=== PATIENT | female | born 1965 | race Hispanic/Latino ===

== ENCOUNTER 2016-12-24 14:14 | Inpatient (IN) | payer MEDICAID ==
[~2016-12-24] VITALS: Ht 170.2 cm; Wt 63.7 kg
--- NOTE | 2016-12-24 15:37 | Occupational Therapy Eval ---
OT Evaluation-General/PLF Medical Diagnosis Admission Date Dec 24, 2016 at 14:45 Medical Diagnosis: gangrene L foot, s/p L BKA Onset Date: Dec 08, 2016 Therapy Diagnosis Therapy Diagnosis: weakness, decr self care, decr activity tolerance, decr funct mobility Height/Weight Height (Feet): 5 Height (Inches): 7.00 Weight (Pounds): 148 Weight (Ounces): 0.2 Precautions Precautions/Isolations: Standard Precautions Weight Bear Status Weight Bearing Restriction: Weight Bearing/Tolerated Location Restriction: L LE Referral Physician: Prudencio Referral Reason: Evaluation/Treatment Medical History Pertinent Medical History: DM, HTN, Neuropathy (hands) Additional Medical History Pt reported trigger finger on both hands Current History Osteomyelitis L foot, sepsis, chronic airway obstruction, anxiety. Pt also has sacral sores Reviewed History: Yes Social History Home: Single Level Current Living Status: Other Family Pt reported she and her will be living with her son, his girlfriend and 4 children ADL-Prior Level of Function ADL PLOF Comments Pt reported that she was independent with all her basic self care needs. 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 She still drives DME/Equipment: Grab Bars, Shower, Tall Toilet DME/Equipment Comments Pt reported landlord was going to install grab bars, hand held shower Occupation: [employer], grocery store Drive Self: Yes OT Current Status Subjective Pt seen in bed, agreeable to OT. Pain reported 6/10 in her L leg, not described. Appearance Alert, cooperative Mental Status/Objective Patient Orientation: Person, Place, Time, Situation Attachments: Central Line, Romero Catheter, Other-See Comments (dressing L residual limb) Current Upper Extremity ROM Grossly WFl bilat. Possible old rotator cuff injury L shoulder. Arthritic changes in hands Upper Extremity Strength Grossly 4/5 bilat ADL-Treatment ADL-Current Pt hadn't eaten so she ordered her lunch. Will defer ADLs until tomorrow. She was very fatigued from transportation here and from activities in the acute care hospital Functional [place] Measure 0=Not Assessed/NA 4=Minimal Assistance 1=Total Assistance 5=Supervision or Setup 2=Maximal Assistance 6=Modified [place] 3=Moderate Assistance 7=Complete IndependenceIRFPAI Quality Coding Scale 6 Independent with activity with or without an assistive device 5 Patient requires set up or clean up by helper. Patient completes activity by themselves 4 Supervision or touching assist (CGA). [place] provide cues , steadying assist 3 The helper provides less than half the effort to complete the activity 2 The helper provides more than half the effort to complete the activity 1 Dependent. The helper does all the effort to complete an activity 7 Patient refused to complete or attempt activity 9 The patient did not perform the activity before the current illness or injury 88 Not attempted due to Medical conditions or safety concerns Education OT Patient Education: Purpose of tx/functional activities, Reviewed precautions , Rehab process Teaching Recipient: Patient Teaching Methods: Discussion Response to Teaching: Verbalize Understanding OT Short Term Goals Short Term Goals Time Frame: Dec 31, 2016 Bathing(FIM): 5 Upper Body Dressing(FIM): 5 Lower Body Dressing(FIM): 5 Toileting(FIM): 5 Toilet/Commode Transfer(FIM): 5 Additional Short Term Goals: 2-Verbalize Understanding, 3-ImproveStrength/Anatoly 1=Demonstrate adherence to instructed precautions during ADL tasks. 2=Patient will verbalize/demonstrate understanding of assistive devices/ modifications for ADL. 3=Patient will improve strength/tolerance for activity to enable patient to perform ADL's. OT Mcfp Goals Developmental Services Worker Goals Time Frame: Jan 14, 2017 Eating (FIM): 6 Eating (QC): 6 Groomin Oral Hygiene (QC): 6 Bathing(FIM): 6 Shower/Bathe Self (QC): 6 Upper Body Dressing(FIM): 6 Upper Body Dressing (QC): 6 Lower Body Dressing(FIM): 6 Lower Body Dressing (QC): 6 On/Off Footwear (QC): 6 Toileting(FIM): 6 Toileting Hygiene (QC): 6 Toilet/Commode Transfer(FIM): 6 Toilet/Commode Transfer (QC): 6 Shower Transfer(FIM): 6 Increase bilat UE strength to 5/5 as needed for functional mobility and ADLs Additional Goals: 2-Verbalize Understanding, 3-ImproveStrength/Anatoly 1=Demonstrate adherence to instructed precautions during ADL tasks. 2=Patient will verbalize/demonstrate understanding of assistive devices/ modifications for ADL. 3=Patient will improve strength/tolerance for activity to enable patient to perform ADL's. OT Education/Plan Problem List/Assessment Assessment: Decreased Activ Tolerance, Decreased UE Strength, Dependent Transfers, Impaired Coordination, Impaired Funct Balance, Impaired Self-Care Skills Pt would benefit from skilled OT to increase her independence in basic self care to allow her to return home safely to live with and family after L BKA. Discharge Recommendations Plan/Recommendations: Continue POC Treatment Plan/Plan of Care Treatment,Training & Education: Yes Patient would benefit from OT for education, treatment and training to promote independence in ADL's, mobility, safety and/or upper extremity function for ADL' s. Plan of Care: ADL Retraining, Functional Mobility, Group Exercise/Act as Ind ( education, exercise, activity tolerance, socialization, funct activities), UE Funct Exercise/Act, UE Neuromus Re-Ed/Coord Treatment Duration: Jan 14, 2017 # of days/week 5-6 Visits Per Week: 10-11 Minutes/Day (M-F): 75-90 Minutes/Day (Sat/Mat[place]or[place]): PRN Agreement: Yes Rehab Potential: Good Time/GCodes Start Time: 15:00 Stop Time: 15:20 Total Time Billed (hr/min): 20 Billed Treatment Time visit, 20 minutes evaluation moderate intensity MAURA SARKAR OT Dec 24, 2016 15:37
--- NOTE | 2016-12-24 15:38 | ST Cognitive Linguistic Eval ---
Speech Evaluation-General Medical Diagnosis Left Lower Extremity (below knee) Amputation Onset Date: Dec 24, 2016 Therapy Diagnosis Therapy Diagnosis: Cognitive Linguistic Function WNL Referral Referring Physician: Dr. Flannery Reason for Referral: Evaluation/Treatment Speech, Language, and Cognitive Evaluation Medical History Pertinent Medical History: DM Speech PLF-Current Status Prior Level of Function The patient denied cognitive, speech, or language deficits prior to or throughout her hospitalization. Subjective The patient was recently admitted to [facility] following a left below knee amputation. The patient greeted the clinician appropriately and agreed to participate in the cognitive evaluation on this date. Language Eval: Auditory Comprehends Simple Yes/No Ques: Functional Indent/Objects Multiple [place]: Functional Ident/Pics in Multiple [place]: Functional Follows 1-Step Commands: Functional Follows Complex Directions: Functional Follows General Conversations: Functional Language Eval: Verbal Language Completes Spontaneous Greeting: Functional Produces Auto, Serial Info: Functional Imitates Simple Words/Phrases: Functional Word Finding: Functional Requests Basic Needs: Functional States Basic Personal Info: Functional Expresses Complex Ideas: Functional Cognitive Patient Orientation The patient was oriented to self, location, city, date, day of week, month, and year. Objective Cognitive Domain Attention: WNL Memory: WNL Problem Solving: Functional Objective Impression The patient demonstrated cognitive linguistic skills grossly within normal limits for completion of ADL's in the least restrictive setting. Communication/Social Cognition Comprehension: 6 Expression: 6 Social Interaction: 6 Problem Solvin Memory: 5 Speech Patient Assess Expression of Ideas/Wants: Expression (4) Understanding [place] Content: Understands (4) Brief Interview-Mental Status: Yes Repetition of Three Words: Three (3) Temporal Orientation: Year: Correct (3) Temporal Orientation: Month: Accurate within 5 days(2) Temporal Orientation: Day: Correct (1) Recall : Wear to say "Sock": Yes, no cue required (2) Recall : Color: Yes, no cue required (2) Recall : Bed: Yes, no cue required (2) Speech-Plan Treatment Plan Speech Therapy Treatment Plan: Discontinue ST Evaluation, only. Rehab Potential: Good Safety Risks/Education Teaching Recipient: Patient Teaching Methods: Discussion Response to Teaching: Verbalize Understanding Education Topics Provided: Plan of Care Time Speech Therapy Time In: 14:20 Speech Therapy Time Out: 14:35 Total Billed Time: 15 Billed Treatment Time 1, YANET MURRY Dec 24, 2016 15:38
[2016-12-24 16:03] VITALS: BP 145/89
--- NOTE | 2016-12-24 16:07 | Physical Therapy Evaluation ---
PT Evaluation-General Medical Diagnosis Admission Date Dec 24, 2016 at 14:45 Medical Diagnosis: gangrene L foot, s/p L BKA Onset Date: Dec 08, 2016 Therapy Diagnosis Therapy Diagnosis: Impaired mobility, strength, endurance Height/Weight Height (Feet): 5 Height (Inches): 7.00 Weight (Pounds): 148 Weight (Ounces): 0.2 Precautions Precautions/Isolations: Standard Precautions Referral Physician: Prudencio Reason for Referral: Evaluation/Treatment Medical History Pertinent Medical History: DM, HTN, Neuropathy (hands) Additional Medical History anxiety, cholecystectomy, Current History left below the knee amputation, gangrene on heel Reviewed History: Yes Social History Home: Single Level Current Living Status: Other Family Patient states she has many steps to enter her home but is going to have the entrance modified with a ramp and railings. Prior/Core FIM Prior Level of Function Functional [place] Measure 0=Not Assessed/NA 4=Minimal Assistance 1=Total Assistance 5=Supervision or Setup 2=Maximal Assistance 6=Modified [place] 3=Moderate Assistance 7=Complete [place] Bed Mobility: 7 Transfers (B,C,W/C) (FIM): 7 Gait: 7 PT Evaluation-Current Subjective Patient in bed pre tx, agrees to PT, she states she has pain of 8/10 in left residual limb, nurse notified, she also states she has been having some phantom pain and phantom sensation. Pt/Family Goals to get ready for a prosthetic leg Objective Patient Orientation: Normal For Age ROM/Strength ROM Lower Extremities WNL, patient has full extension of left knee. Right ankle is able to achieve neutral dorsiflexion but barely. She also has fallen arch on right foot. Strenght Lower Extremities Left leg not tested due to pain. Right lower extremity hip flexion 4-/5, knee extension 4/5, knee flexion 4-/5, dorsiflexion 3+/5 Integumentary/Posture Integumentary Patient has impaired skin integrity on her bottom. Her stump is wrapped. Bladder Incontinence: Romero Cath Neuromuscular (Tone, Coordination, Reflexes) WNL Sensory Vision: Functional Hearing: Functional Sensation Right Lower Extremit: Impaired Sensation Left Lower Extremity: Intact Sensation Lower Extremities Patient has no light touch sensation from the ankle down on the right leg, she also has significant discoloration in her foot. Transfers Functional [place] Measure 0=Not Assessed/NA 4=Minimal Assistance 1=Total Assistance 5=Supervision or Setup 2=Maximal Assistance 6=Modified [place] 3=Moderate Assistance 7=Complete IndependenceIRFPAI Quality Coding Scale 6 Independent with activity with or without an assistive device 5 Patient requires set up or clean up by helper. Patient completes activity by themselves 4 Supervision or touching assist (CGA). [place] provide cues , steadying assist 3 The helper provides less than half the effort to complete the activity 2 The helper provides more than half the effort to complete the activity 1 Dependent. The helper does all the effort to complete an activity 7 Patient refused to complete or attempt activity 9 The patient did not perform the activity before the current illness or injury 88 Not attempted due to Medical conditions or safety concerns Transfers (B, C, W/C) (FIM): 4 Scootin Rollin Roll Left to Right (QC): 4 Supine to/from Sit: 5 Sit to/from Stand: 4 bed t/f WC(FIM only if WC use): 4 Sit to Lying (QC): 4 Lying to Sitting/Side of Bed(Q: 4 Sit to Stand (QC): 3 Chair/Tdi-bp-Gojxf Xfer(QC): 3 Car Transfer (QC): 88 Patient performs bed mobility with SBA and needs min assist for sit to stand and stand pivot transfers. Cues for safety and hand placement. Gait Does the Patient Walk?: Yes Mode of Locomotion: Walk Anticipated Mode of Locomotion: Walk Gait (FIM): 1 Walk 10 feet (QC): 88 Walk 50 ft with 2 Turns(QC): 88 Walk 150 ft (QC): 88 Walking 10ft/uneven surface-QC: 88 Distance: 5' Gait Level of Assist: 4 Gait Persons Needed: 1 Gait Assistive Device: FWW Comments/Gait Description Patient hops on right leg with min assist for balance, keeps left stump flexed forward in the air. Wheelchair Training Does the Pt Use a Wheelchair?: Yes Wheelchair (FIM): 5 Distance: 150'x2 Wheelchair Level of Assist: 5 Wheel 50 ft with 2 turns (QC): 5 Wheel 150 ft (QC): 5 Type of Wheelchair: Manual Stairs If not tested on admit;explain Patient not safe to attempt even one step at this time. She can barely hop forward on her right leg, she will not be able to hop high enough to get a few inches off the ground required to get onto a step. Balance Sitting Static: Normal Sitting Dynamic: Normal Standing Static: Fair Standing Dynamic: Fair Picking up an Object (QC): 88 Assessment/Needs Patient has impaired functional mobility, strength, endurance post left BKA. She will need a stump wool tamper. Rehab Potential: Fair PT Short Term Goals Short Term Goals Time Frame: Dec 31, 2016 Transfers (B,C,W/C) (FIM): 4 (CGA) Gait (FIM): 2 Gait Distance Comment: 50' Gait Level of Assist: 4 (CGA) Gait Assistive Device: FWW PT Pct Goals Pct Goals PT Pct Goals Time Frame: Jan 14, 2017 Transfers (B,C,W/C) (FIM): 5 Sit to Lying (QC): 6 Lying-Sitting on Side/Bed(QC): 6 Sit to Stand (QC): 4 Rollin Roll Left to Right (QC): 6 Chair/Ahw-eq-Vkwfi Xfer(QC): 4 Car Transfer (QC): 4 Does the Patient Walk: Yes Gait (FIM): 5 Distance: 150' Walk 10 feet (QC): 4 Walk 10ft-Uneven Surface(QC): 4 Walk 50ft with 2 Turns (QC): 4 Walk 150 ft (QC): 4 Gait Level of Assist: 5 Gait Assistive Device: FWW Stairs (FIM): 2 # of Steps: 4 1 Step (curb) (QC): 4 4 Steps (QC): 4 12 Steps (QC): 88 Stairs Level Of Assist: 4 Picking up an Object (QC): 88 PT Plan Problem List Problem List: Activity Tolerance, Functional Strength, Safety, Balance, Gait, Transfer, Bed Mobility, ROM Treatment/Plan Treatment Plan: Continue Plan of Care Treatment Plan: Bed Mobility, Education, Functional Activity Anatoly, Functional Strength, Group Therapy, Gait, Safety, Therapeutic Exercise, Transfers Treatment Duration: Jan 14, 2017 # of days/week 5-6 Visits Per Week: 10-11 Minutes/Day (M-F): 60-90 Minutes/Day (Sat/[place]): 15-30 Pt/Family Agrees w/Plan: Yes Safety Risks/Education Patient Education: Gait Training, Transfer Techniques, Correct Positioning, W/ C Management, Disease Process, Safety Issues Teaching Recipient: Patient Teaching Methods: Demonstration, Discussion Response to Teaching: Reinforcement Needed Discharge Recommendations Plan Patient will perform bed mobility and transfer training, balance and endurance training, functional strengthening, stair training, gait training, ROM exercises , and education, to improve functional mobility and independence at home and get her ready for a prosthetic leg. Therapy D/C Recommendations: Home w/ Family Support Time/GCodes Time In: 1530 Time Out: 1600 Total Billed Treatment Time: 30 Total Billed Treatment 1 visit EVM 15 min FA 15 min DESIRE SORIA PT Dec 24, 2016 16:07
[2016-12-24] MEDS ORDERED: inSUlin ASPART (NovoLOG) 1 UNIT/0.01 ML (CHARGE PER UNIT) SC SCH (16:15)
[2016-12-24] MEDS ORDERED: PIPERACILLIN/TAZOBACTAM 4.5 GM/NS 100 ML IV NR ×2 (16:48)
[2016-12-24] MEDS ORDERED: ANIDULAFUNGIN INJECTION 100 MG in NS (IVPB) 100 ML IV NR (16:53)
[2016-12-24] MEDS ORDERED: PROMETHAZINE 25 MG (PHENERGAN) TAB PO PRN (17:30)
[2016-12-24] MEDS: metFORMIN XR 500 MG (GLUCOPHAGE XR) TAB PO SCH (17:47)
[2016-12-24] MEDS: LACTOBACILLUS Acidoph/Bulgar (LACTINEX/FLORANEX) TAB PO SCH (17:47)
[2016-12-24] MEDS: HYDROcodone/APAP 10 MG/325 MG (LORTAB) TAB PO PRN (17:49)
[2016-12-24 18:05] VITALS: BP 160/80
[2016-12-24] MEDS: GABAPENTIN 100 MG (NEURONTIN) CAP PO SCH (20:37)
[2016-12-24] MEDS: CYCLOBENZAPRINE 10 MG (FLEXERIL) TAB PO PRN (20:39)
[2016-12-24] MEDS: inSUlin ASPART (NovoLOG) 1 UNIT/0.01 ML (CHARGE PER UNIT) SC SCH (20:39)
[2016-12-24] MEDS: inSUlin DETERMIR 1 UNIT/0.01 ML (LEVEMIR) CHARGE PER UNIT SQ SCH (20:44)
[2016-12-24] MEDS: PIPERACILLIN/TAZOBACTAM 4.5 GM/NS 100 ML IVPB IV SCH ×2 (23:21)
[2016-12-25] MEDS: HYDROcodone/APAP 10 MG/325 MG (LORTAB) TAB PO PRN (02:49)
[2016-12-25 06:00] VITALS: BP 149/75
[2016-12-25] MEDS: inSUlin ASPART (NovoLOG) 1 UNIT/0.01 ML (CHARGE PER UNIT) SC SCH ×4 (06:00→20:35)
[2016-12-25 06:08] LABS: BASOPHILS % (AUTO) 0 % (0-10); EOSINOPHILS # (AUTO) 0.2 10^3/uL (0.0-0.3); EOSINOPHILS % (AUTO) 2 % (0-10); LYMPHOCYTES # (AUTO) 1.6 X 10^3 (1.0-4.0); LYMPHOCYTES % (AUTO) 23 % (12-44); MEAN CORPUSCULAR HEMOGLOBIN 30 PG (25-34); MEAN CORPUSCULAR HGB CONC 34 G/DL (32-36); MEAN CORPUSCULAR VOLUME 89 FL (80-99); MEAN PLATELET VOLUME 8.4 FL (7.4-10.4); MONOCYTES # (AUTO) 0.7 X 10^3 (0.0-1.0); MONOCYTES % (AUTO) 11 % (0-12); NEUTROPHILS # (AUTO) 4.4 X 10^3 (1.8-7.8); NEUTROPHILS % (AUTO) 64 % (42-75); PLATELET COUNT 623 10^3/uL (130-400); RED BLOOD COUNT 3.38 10^6/uL (4.35-5.85); RED CELL DISTRIBUTION WIDTH 14.2 % (10.0-14.5); WHITE BLOOD COUNT 6.9 10^3/uL (4.3-11.0)
[2016-12-25] MEDS: PIPERACILLIN/TAZOBACTAM 4.5 GM/NS 100 ML IVPB IV SCH ×6 (06:29→23:20)
[2016-12-25] MEDS: metFORMIN XR 500 MG (GLUCOPHAGE XR) TAB PO SCH ×2 (06:29→17:46)
[2016-12-25] MEDS: LACTOBACILLUS Acidoph/Bulgar (LACTINEX/FLORANEX) TAB PO SCH ×3 (06:29→16:04)
[2016-12-25 06:58] LABS: ALANINE AMINOTRANSFERASE 16 U/L (0-55); ALBUMIN 2.4 G/DL (3.2-4.5); ANION GAP 11 MMOL/L (5-14); ASPARTATE AMINO TRANSFERASE 18 U/L (5-34); BILIRUBIN,TOTAL 0.2 MG/DL (0.1-1.0); BLOOD UREA NITROGEN 7 MG/DL (7-18); BUN/CREATININE RATIO 10; CALCIUM 8.5 MG/DL (8.5-10.1); CARBON DIOXIDE 23 MMOL/L (21-32); CHLORIDE 104 MMOL/L (98-107); CREATININE SERUM 0.72 MG/DL (0.60-1.30); GFR ESTIMATED > 60; GLUCOSE 88 MG/DL (70-105); POTASSIUM 3.2 MMOL/L (3.6-5.0); SODIUM 138 MMOL/L (135-145); TOTAL PROTEIN 6.9 G/DL (6.4-8.2)
[2016-12-25] MEDS ORDERED: KCL 20 MEQ TAB (K-DUR) PO ONE (08:30)
--- NOTE | 2016-12-25 08:34 | Consultation ---
History of Present Illness History of Present Illness Patient Consulted On(geri/time) 12/25/16 08:29 Date of Admission History of Present Illness patient was admitted to [facility] on and was found to have a principal diagnosis of gangrene of the left foot. Patient had a three-week history of left heel wound with foul-smelling drainage. In the emergency room patient was febrile and tachycardic. Patient did have below the knee mutation of the left extremity. Patient has a history of hypertension. Bacterial infection. Sepsis. Osteomyelitis of left foot. COPD. Diabetes mellitus type II. Diabetic neuropathy. Surgeries gallbladder, , amputation of middle left toe Allergies and Home Medications Allergies Coded Allergies: No Known Drug Allergies (Unverified , 12/24/16) Past Yliexrk-Oumkms-Gpccay Hx Patient Social History Alcohol Use: Occasionally Uses Recreational Drug Use: No Drug of Choice: THC-6 months ago Smoking Status: Former Smoker Type Used: Cigarettes Recent Foreign Travel: No Contact w/Someone Who Travel: No Recent Infectious Disease Expo: No Recent Hopitalizations: Yes Physical Abuse Screen: No Sexual Abuse: No Immunizations Up To Date Date of Influenza Vaccine: Sep 10, 2016 Seasonal Allergies Seasonal Allergies: Yes Respiratory Respiratory Disorders: COPD Reproductive System : No Sexually Transmitted Disease: No HIV/AIDS: No Female Reproductive Disorders: Denies Musculoskeletal Musculoskeletal Disorders: Amputee HEENT Loss of Vision: Denies Hearing Impairment: Denies Psychosocial Behavioral Health Disorders: Anxiety, Depression Integumentary Skin/Integumentary Disorders: Recent Skin Changes Blood Transfusions Adverse Reaction to a Blood Tr: No Family Medical History Family Medial History: Alcoholism G8 BROTHER Diabetes mellitus 19 FATHER 19 MOTHER G8 BROTHER G8 SISTER Review of Systems-General Constitutional: no symptoms reported EENTM: no symptoms reported Respiratory: other (COPD) Cardiovascular: no symptoms reported Gastrointestinal: no symptoms reported Genitourinary: no symptoms reported Physical Exam-General Problems Physical Exam Vital Signs Vital Sign - Last 12Hours 12/24/16 12/24/16 16:03 19:54 Temp 98.2 Pulse 92 Resp 16 B/P 145/89 Pulse Ox 98 O2 Delivery Room Air Capillary Refill : General Appearance: WD/WN no apparent distress Eyes: Bilateral Eye Normal Inspection HEENT: normal ENT inspection Neck: non-tender full range of motion supple Respiratory: chest non-tender lungs clear normal breath sounds no respiratory distress no accessory muscle use Cardiovascular: regular rate, rhythm no murmur Gastrointestinal: non tender soft Assessment/Plan Assessment/Plan Admission Diagnosis/Plan left below the knee amputation. Diabetes. Hypertension. COPD. Former smoker. Sepsis. Patient on IV antibiotics Clinical Quality Measures DVT/VTE Risk/Contraindication: Risk Factor Score Per Nursin RFS Level Per Nursing on Admit: 4+=Very High RAYMOND SHELLEY DO Dec 25, 2016 08:34
[2016-12-25] MEDS: GABAPENTIN 100 MG (NEURONTIN) CAP PO SCH ×2 (08:35→20:34)
[2016-12-25] MEDS: lisINopril 10 MG (PRINIVIL) TAB PO SCH (08:35)
[2016-12-25] MEDS: amLODIPine 5 MG (NORVASC) TAB PO SCH (08:35)
--- NOTE | 2016-12-25 09:53 | HISTORY AND PHYSICAL ---
DATE OF ADMISSION: 12/24/2016 CHIEF COMPLAINT: Difficulty with walking. HISTORY OF PRESENT ILLNESS: The patient is a 51-year-old female who lives with her in [place], [place], who is on [place] Medicaid, who came to visit her son to live with them in [place], [place]. She subsequently became ill, developed gangrene of the left foot. 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 The patient was seen by ID and treated by hospitalist as well. The patient is on antibiotics. Her insulin was adjusted for control of her diabetes mellitus. She has diabetic peripheral neuropathy but denies numbness in her right foot or pain or skin breakdown in her right leg. She is referred to Inpatient Rehabilitation Unit for a comprehensive program of inpatient amputee rehabilitation. Currently, she requires assistance for ADLs mobility skills. She is utilizing Lortab generic for back pain. She reports having been independent prior to this and has worked in the past as a KEYBOARDING CLERK. She also has worked in [employer]. Currently unemployed. The patient is currently mod assist for bathing. Set up for upper body dressing, mod assist for lower body dressing and toileting. She is min assist for transfers, min assist to hop short distance with a front wheel walker and she is standby assist for wheelchair mobility. PAST MEDICAL HISTORY: 1. Hypertension. 2. COPD. 3. Type 2 diabetes mellitus. PAST SURGICAL HISTORY: As per above. ALLERGIES: No known medication allergies. FAMILY HISTORY: Noncontributory. SOCIAL HISTORY: Essentially as per above. REVIEW OF SYSTEMS: Ten-point review of systems significant for residual limb pain, intermittent nausea; takes Phenergan for that. MEDICATIONS: 1. Amlodipine 5 mg p.o. daily. 2. Lisinopril 10 mg p.o. daily. 3. Gabapentin 100 mg p.o. b.i.d. 4. Phenergan 25 mg p.o. q.4 hours p.r.n. for nausea. 5. Metformin 1000 mg p.o. b.i.d. extended release. 6. Sliding scale insulin regimen A. 7. Lactinex 1 tablet p.o. before meals. 8. Lortab 10 mg 1 p.o. q.4 hours p.r.n. moderate pain. 9. Xanax 1 mg p.o. q.8 hours p.r.n. anxiety. 10. Flexeril 5 mg p.o. t.i.d. p.r.n. muscle spasm. 11. She states that she was on Lantus insulin 15 units at bedtime and NovoLog with meals. 12. Mycamine 100 mg IV for one more day, antifungal agents. 13. Zosyn 3.375 grams q.6 hours for 30 days. PHYSICAL EXAMINATION: Physical examination is significant for a pleasant female, lying in bed in no acute distress. VITAL SIGNS: Pulse 92, respirations 16, blood pressure 145/89, O2 sat 98% on room air. She is afebrile. HEENT: Vision, speech, hearing, grossly intact. No oral lesion is noted. NECK: Supple without mass. HEART: Rhythm. LUNGS: Clear. ABDOMEN: Soft, nontender. Bowel sounds present. EXTREMITIES: Left BKA, TROY wrapped with mild tenderness to touch. There is no calf tenderness or edema in the right leg. MUSCULOSKELETAL: Strength upper limbs, grossly 4/5, functional active range of motion both upper limbs. There is some arthritic changes present in both hands. Has functional district manager major accounts sales strength. Sensation in right ankle is decreased to touch. The patient has full extension of the left knee. She has pes planus of the right foot. Right lower limb hip flexion 4-/5, knee extension, 4/5, knee flexion 4-/5, dorsiflexion 3+/5. NEUROLOGIC: Sensation as per above, strength as per above. Cognition grossly intact. She has been assessed by speech therapy at this time and speech therapy has signed off. : Indwelling Romero catheter to dependent drainage. IMPRESSION: 1. Ambulatory dysfunction secondary to osteomyelitis of the left foot, status post last BKA. 2. Sepsis due to group B streptococcus on antibiotics as per ID Elsie Gates. 3. COPD. 4. Type 2 diabetes mellitus. 5. Postoperative anemia with hemoglobin of 9.4 on 12/22. 6. Pressure sores sacrum PLAN: The patient will have a comprehensive program of inpatient rehabilitation with goal of maximizing level of functional dependence prior to discharge home with spouse and her son. I have been informed by administration here that Elsie Cervantes will provide amber care for follow-up antibiotics for her upon discharge as she may not be here for the full 30 days to complete her course of IV antibiotics here. The patient will have PT/OT 90 minutes, day , each discipline, 5 days a week for gait strengthening, conditioning, residual limb conditioning, wheelchair instruction, ADLs, any patient/family/caregiver training necessary, any adaptive equipment and training necessary. Speech therapy has already assessed him and signed off. Rehabilitation nursing assist with bowel, bladder, skin, wound care, medication administration, pain management. The patient does have some pressure sores over the sacrum as well. We will consult Dr. Smith, home health specialist. [facility] director of [facility] health services to assist with discharge planning, community reentry. Routine admission labs, Accu-Cheks q.i.d. before meals and at bedtime. Consult Dr. Santiago to assist with medical management while on rehab unit. ESTIMATED LENGTH OF STAY: 2 weeks. PROGNOSIS: Rehab prognosis appears good for goal of discharging home with son and spouse, hopefully, modified independent to supervision for ADLs and mobility skills at the wheelchair level of function. DIET: Carb consistent. CODE STATUS: Full code. POST ADMISSION PHYSICIAN ASSESSMENT: The preadmission screen agrees with the post admission assessment that the patient is a good candidate for inpatient rehabilitation. She appears to be well motivated to participate in 3 hours of therapy a day. She should be able tolerate 3 hours of therapy a day from a medical and surgical standpoint. She should benefit from the 3 hours of therapy a day. She has reasonable discharge plan, reasonable discharge rehabilitation goals as outlined above and a supportive family. She has various comorbidities that need to be closely monitored with medications and treatments adjusted on a daily basis as needed. These include her hypertension, type 2 diabetes mellitus, COPD, sacral pressure sores and ongoing wound care, and pain management. Barriers to discharge for this patient who had been independent until recently is for her to be modified independent to supervision for ADLs and mobility skills with good wound healing, good pain control prior to discharge home with spouse and her son. It is reported that her son is building a ramp for wheelchair accessibility to the home in [place], there are apparently quite a few steps to enter. Risks for this patient include: 1. Wound breakdown. 2. Contracture. 3. Poorly controlled pain. 4. Poorly controlled hypertension. 5. Poorly controlled diabetes. 6. Fall. 7. Fracture. 8. DVT. 9. Pulmonary embolism. 10. Skin breakdown. 11. Urinary retention. 12. UTI. 13. Respiratory infection. 14. Aspiration. Job ID: [id number] Dictated Date: 12/24/2016 17:42:10 Field Technician Date: 12/25/2016 09:02:29/waleska MCNAMARA
--- NOTE | 2016-12-25 09:59 | Occupational Ther Daily Note ---
OT Current Status-Daily Note Subjective Pt seen in room, up in bed, agreeable to OT. No pain mentioned. Appearance Alert, cooperative Mental Status/Objective Functional [place] Measure 0=Not Assessed/NA 4=Minimal Assistance 1=Total Assistance 5=Supervision or Setup 2=Maximal Assistance 6=Modified [place] 3=Moderate Assistance 7=Complete [place] Attachments: Central Line, Other-See Comments (dressing on L residual limb LE) ADL-Treatment Functional [place] Measure 0=Not Assessed/NA 4=Minimal Assistance 1=Total Assistance 5=Supervision or Setup 2=Maximal Assistance 6=Modified [place] 3=Moderate Assistance 7=Complete IndependenceIRFPAI Quality Coding Scale 6 Independent with activity with or without an assistive device 5 Patient requires set up or clean up by helper. Patient completes activity by themselves 4 Supervision or touching assist (CGA). [place] provide cues , steadying assist 3 The helper provides less than half the effort to complete the activity 2 The helper provides more than half the effort to complete the activity 1 Dependent. The helper does all the effort to complete an activity 7 Patient refused to complete or attempt activity 9 The patient did not perform the activity before the current illness or injury 88 Not attempted due to Medical conditions or safety concerns Eating (FIM): 6 (No assist needed) Eating (QC): 6 Grooming (FIM): 5 (Setup, EOB, brush teeth and hair, wash face and hands) Oral Hygiene (QC): 5 Bathing (FIM): 4 (78% (7 of 9 parts). Setup, sponge bath at EOB. Pt needed assistance to wash bottom and pancho areas due to open areas. Bleeding around chauhan catheter site - nursing notified and chauhan removed. ) Bathing Location: L Arm, R Arm, L Upper Leg, R Upper Leg, R Lower Leg ( including foot), Chest, Abdomen Shower/Bathe Self (QC): 3 Upper Body (FIM): 5 (setup) Upper Body Dressing (QC): 5 Lower Body Dressing (FIM): 4 (CGA when standing to pull pants up. Has been incontinent of stool and agreed to paper briefs. Pt educ modified technique for donning pants. Pt stood CGA, FWW to pull pants up. ) Lower Body Dressing (QC): 4 On/Off Footwear (QC): 5 (Setup, slipper sock off and on) Toileting (FIM): 4 (CGA, FWW to stand to pull pants up and down. Able to wipe with stup. BSC) Toileting Hygiene (QC): 4 Transfers (B, C, W/C) (FIM): 4 (CGA, sit to stand, FWW) Toilet/Commode Transfer (FIM): 4 (CGA, SPT to BSC, FWW) Toilet Transfer (QC): 4 Pt education on use of arms when standing to manage clothing, using FWW, safety , to avoid falling or LOB. Pt left in bed, positioned on side, 4 rails up, all needs met. Education OT Patient Education: Modified ADL techniques, Purpose of tx/functional activities, Safety issues, Transfer techniques, Use of adapted equipment Teaching Recipient: Patient Teaching Methods: Demonstration, Discussion Response to Teaching: Return Demonstration, Reinforcement Needed OT Short Term Goals Short Term Goals Time Frame: Dec 31, 2016 Bathing(FIM): 5 Upper Body Dressing(FIM): 5 Lower Body Dressing(FIM): 5 Toileting(FIM): 5 Transfers (B,C,W/C) (FIM): 4 (CGA) Toilet/Commode Transfer(FIM): 5 Additional Short Term Goals: 2-Verbalize Understanding, 3-ImproveStrength/Anatoly 1=Demonstrate adherence to instructed precautions during ADL tasks. 2=Patient will verbalize/demonstrate understanding of assistive devices/ modifications for ADL. 3=Patient will improve strength/tolerance for activity to enable patient to perform ADL's. OT Digital Photographic Printer Goals Digital Photographic Printer Goals Time Frame: Jan 14, 2017 Eating (FIM): 6 Eating (QC): 6 Groomin Oral Hygiene (QC): 6 Bathing(FIM): 6 Shower/Bathe Self (QC): 6 Upper Body Dressing(FIM): 6 Upper Body Dressing (QC): 6 Lower Body Dressing(FIM): 6 Lower Body Dressing (QC): 6 On/Off Footwear (QC): 6 Toileting(FIM): 6 Toileting Hygiene (QC): 6 Toilet/Commode Transfer(FIM): 6 Toilet/Commode Transfer (QC): 6 Shower Transfer(FIM): 6 Increase bilat UE strength to 5/5 as needed for functional mobility and ADLs Additional Goals: 2-Verbalize Understanding, 3-ImproveStrength/Anatoly 1=Demonstrate adherence to instructed precautions during ADL tasks. 2=Patient will verbalize/demonstrate understanding of assistive devices/ modifications for ADL. 3=Patient will improve strength/tolerance for activity to enable patient to perform ADL's. OT Education/Plan Problem List/Assessment Pt would benefit from skilled OT to increase her independence in basic self care to allow her to return home safely to live with and family after L BKA. Discharge Recommendations Plan/Recommendations: Continue POC Treatment Plan/Plan of Care Patient would benefit from OT for education, treatment and training to promote independence in ADL's, mobility, safety and/or upper extremity function for ADL' s. Plan of Care: ADL Retraining, Functional Mobility, Group Exercise/Act as Ind ( education, exercise, activity tolerance, socialization, funct activities), UE Funct Exercise/Act, UE Neuromus Re-Ed/Coord Treatment Duration: Jan 14, 2017 Visits Per Week: 10-11 Minutes/Day (M-F): 75-90 Minutes/Day (Sat/[place]): PRN Agreement: Yes Rehab Potential: Fair Time/GCodes Start Time: 08:30 Stop Time: 09:35 Total Time Billed (hr/min): 65 Billed Treatment Time visit, 65 minutes ADL MAURA SARKAR OT Dec 25, 2016 09:59
--- NOTE | 2016-12-25 11:20 | Physical Therapy Daily Note ---
PT Daily Note-Current Subjective Patient in bed sleeping pre tx, agrees to PT upon waking. 5/10 pain in left residual limb. Patient does not have any pants on so I will need to find some and help her dress. Appearance Patient in bed post tx on left side, has nurse call, phone, tray, all needs met. Mental Status Patient Orientation: Normal For Age Attachments: IV Transfers Functional [place] Measure 0=Not Assessed/NA 4=Minimal Assistance 1=Total Assistance 5=Supervision or Setup 2=Maximal Assistance 6=Modified [place] 3=Moderate Assistance 7=Complete IndependenceIRFPAI Quality Coding Scale 6 Independent with activity with or without an assistive device 5 Patient requires set up or clean up by helper. Patient completes activity by themselves 4 Supervision or touching assist (CGA). [place] provide cues , steadying assist 3 The helper provides less than half the effort to complete the activity 2 The helper provides more than half the effort to complete the activity 1 Dependent. The helper does all the effort to complete an activity 7 Patient refused to complete or attempt activity 9 The patient did not perform the activity before the current illness or injury 88 Not attempted due to Medical conditions or safety concerns Transfers (B, C, W/C) (FIM): 4 Scootin Rollin Supine to/from Sit: 5 Sit to/from Stand: 4 Bed to/from Chair: 4 Patient needs min assist to stand from low surfaces, otherwise she can perform a stand pivot transfer with CGA. Cues to turn completely before sitting. Gait Training Gait (FIM): 1 Distance: 10'x3 Gait Level of Assist: 4 Gait Persons Needed: 1 Gait Assistive Device: FWW CGA, patient fatigues quickly Wheelchair Training Wheelchair (FIM): 5 Distance: 150'x2 Wheelchair Level of Assist: 5 Type of Wheelchair: Manual general cues for obstacles and operation of wheelchair Exercises left leg LAQ and hamstring curls x 20, manual knee extension stretching NuStep Minutes: 15 NuStep Workload: 5 Treatments bed mobility and transfers, ambulation, wheelchair mobility, functional strengthening Assessment Current Status: Fair Progress improving endurance and strength PT Short Term Goals Short Term Goals Time Frame: Dec 31, 2016 Transfers (B,C,W/C) (FIM): 4 (CGA) Gait (FIM): 2 Gait Distance Comment: 50' Gait Level of Assist: 4 (CGA) Gait Assistive Device: FWW Wheelchair Distance: 150'x2 PT Ammonia Refrigeration Worker Goals Penit[facility]iary Goals PT [place]monia Refrigeration Worker Goals Time Frame: Jan 14, 2017 Transfers (B,C,W/C) (FIM): 5 Sit to Lying (QC): 6 Lying-Sitting on Side/Bed(QC): 6 Sit to Stand (QC): 4 Rollin Roll Left to Right (QC): 6 Chair/Uhn-fr-Rgtby Xfer(QC): 4 Car Transfer (QC): 4 Does the Patient Walk: Yes Gait (FIM): 5 Distance: 150' Walk 10 feet (QC): 4 Walk 10ft-Uneven Surface(QC): 4 Walk 50ft with 2 Turns (QC): 4 Walk 150 ft (QC): 4 Gait Level of Assist: 5 Gait Assistive Device: FWW Stairs (FIM): 2 # of Steps: 4 1 Step (curb) (QC): 4 4 Steps (QC): 4 12 Steps (QC): 88 Stairs Level Of Assist: 4 Picking up an Object (QC): 88 PT Plan Problem List Problem List: Activity Tolerance, Functional Strength, Safety, Balance, Gait, Transfer, Bed Mobility, ROM Treatment/Plan Treatment Plan: Continue Plan of Care Treatment Plan: Bed Mobility, Education, Functional Activity Anatoly, Functional Strength, Group Therapy, Gait, Safety, Therapeutic Exercise, Transfers Treatment Duration: Jan 14, 2017 Visits Per Week: 10-11 Minutes/Day (M-F): 60-90 Minutes/Day (Sat/[place]): 15-30 Safety Risks/Education Patient Education: Gait Training, Transfer Techniques, Correct Positioning, W/ C Management, Safety Issues Teaching Recipient: Patient Teaching Methods: Demonstration, Discussion Response to Teaching: Reinforcement Needed Time/GCodes Time In: 1015 Time Out: 1115 Total Billed Treatment Time: 60 Total Billed Treatment 1 visit GT 30 min EX 30 min DESIRE SORIA PT Dec 25, 2016 11:20
--- NOTE | 2016-12-25 14:34 | Therapy Group Daily Note ---
Therapy Daily Group Note Patient Education Topic Exercises (Benefits of Stretching) Exercises LE Seated Exercise, UE Exercise Other/Notes Pt transported to OT/PT group via w/c. Group consisted of introductions (name, place, own relaxation), socialization, education on stretching, UE/LE seated exercises, indoor signs/environmental Bingo. Pt actively participated in group. Pt was able to contribute to discussions each topic. Pt interacted with each peer appropriately. Completed UE/LE exercises without difficulty. Pt was able to manipulate bingo chips, match pictures and follow directions throughout activities. After group, pt transported to room via w/c then laid down in bed. Call light/phone in reach. All needs met in room. Start Time: 13:00 Stop Time: 14:10 Total Billed Treatment Time: 65 Total Billed Treatment 1-GRP GLORIA KENNY Dec 25, 2016 14:34
[2016-12-25] MEDS: CYCLOBENZAPRINE 10 MG (FLEXERIL) TAB PO PRN (16:00)
[2016-12-25 18:00] VITALS: BP 145/78
[2016-12-25] MEDS: inSUlin DETERMIR 1 UNIT/0.01 ML (LEVEMIR) CHARGE PER UNIT SQ SCH (20:35)
[2016-12-25] MEDS: CATHETER FLUSH 10 ML SYR IV PRN (23:24)
[2016-12-26] MEDS: inSUlin ASPART (NovoLOG) 1 UNIT/0.01 ML (CHARGE PER UNIT) SC SCH ×4 (05:23→20:19)
[2016-12-26 05:30] VITALS: BP 159/76
[2016-12-26] MEDS: CATHETER FLUSH 10 ML SYR IV PRN ×2 (06:01→22:39)
[2016-12-26] MEDS: PIPERACILLIN/TAZOBACTAM 4.5 GM/NS 100 ML IVPB IV SCH ×6 (06:02→22:39)
[2016-12-26] MEDS: LACTOBACILLUS Acidoph/Bulgar (LACTINEX/FLORANEX) TAB PO SCH ×3 (06:21→16:16)
[2016-12-26] MEDS: metFORMIN XR 500 MG (GLUCOPHAGE XR) TAB PO SCH ×2 (06:21→16:19)
[2016-12-26 06:29] LABS: ANION GAP 10 MMOL/L (5-14); BLOOD UREA NITROGEN 7 MG/DL (7-18); BUN/CREATININE RATIO 11; CALCIUM 8.3 MG/DL (8.5-10.1); CARBON DIOXIDE 25 MMOL/L (21-32); CHLORIDE 104 MMOL/L (98-107); CREATININE SERUM 0.63 MG/DL (0.60-1.30); GFR ESTIMATED > 60; GLUCOSE 102 MG/DL (70-105); POTASSIUM 3.1 MMOL/L (3.6-5.0); SODIUM 139 MMOL/L (135-145)
--- NOTE | 2016-12-26 08:13 | Progress Note (SOAP) ---
Subjective Subjective/Events-last exam patient had 3 episodes of diarrhea. Patient on Zosyn. Check for C. difficile. Amputation below the knee Patient voicing no other complaints Objective Exam Vital Signs Date Time Temp Pulse Resp B/P Pulse Ox O2 Delivery O2 Flow Rate FiO2 12/26/16 05:30 98.6 85 18 159/76 99 Room Air 12/25/16 20:30 Room Air 12/25/16 18:00 99.2 99 20 145/78 99 Room Air 12/25/16 09:00 Room Air I & O 12/26/16 07:00 Intake Total 1770 ml Balance 1770 ml Capillary Refill : General Appearance: No Apparent Distress WD/WN HEENT: Normal ENT Inspection Neck: Full Range of Motion Normal Inspection Respiratory: Chest Non Tender Lungs Clear No Accessory Muscle Use No Respiratory Distress Cardiovascular: Regular Rate, Rhythm No Murmur Gastrointestinal: non tender soft Results Lab Laboratory Tests 12/25/16 11:08: Glucometer 132H 12/25/16 15:55: Glucometer 195H 12/25/16 20:08: Glucometer 184H 12/25/16 22:53: Glucometer 134H 12/26/16 05:20: Glucometer 103 12/26/16 05:55: Anion Gap 10, BUN/Creatinine Ratio 11, Blood Urea Nitrogen 7, Calcium Level 8.3L , Carbon Dioxide Level 25, Chloride Level 104, Creatinine 0.63, Estimat Glomerular Filtration Rate > 60, Glucose Level 102, Potassium Level 3.1L, Sodium Level 139 Assessment/Plan Assessment/Plan Assess & Plan/Chief Complaint left below the knee amputation. Diabetes. Hypertension. COPD. Former smoker. Sepsis. Patient on IV antibiotics. . 12/26/16. New-onset diarrhea. Left below the knee amputation. Diabetes. Hypertension. COPD. Sepsis. To check for C. difficile Clinical Quality Measures DVT/VTE Risk/Contraindication: Risk Factor Score Per Nursin RFS Level Per Nursing on Admit: 4+=Very High RAYMOND SHELLEY DO Dec 26, 2016 08:13
[2016-12-26] MEDS: GABAPENTIN 100 MG (NEURONTIN) CAP PO SCH ×2 (08:21→20:19)
[2016-12-26] MEDS: lisINopril 10 MG (PRINIVIL) TAB PO SCH (08:21)
[2016-12-26] MEDS: amLODIPine 5 MG (NORVASC) TAB PO SCH (08:21)
[2016-12-26] MEDS ORDERED: KCL 10 MEQ TAB (MICRO K) PO ONE (08:23)
[2016-12-26] MEDS ORDERED: KCL 10 MEQ TAB (MICRO K) PO NR (08:30)
--- NOTE | 2016-12-26 10:07 | Occupational Ther Daily Note ---
OT Current Status-Daily Note Subjective Pt seen in room, up in bed, agreeable to OT. No pain mentioned. Ready for a shower! Appearance Alert, cooperative Mental Status/Objective Functional [place] Measure 0=Not Assessed/NA 4=Minimal Assistance 1=Total Assistance 5=Supervision or Setup 2=Maximal Assistance 6=Modified [place] 3=Moderate Assistance 7=Complete [place] Attachments: Central Line (covered with plastic for shower), IV, Other-See Comments (L lower leg covered with plastic for shower) ADL-Treatment All ADLs took longer than usual. Functional [place] Measure 0=Not Assessed/NA 4=Minimal Assistance 1=Total Assistance 5=Supervision or Setup 2=Maximal Assistance 6=Modified [place] 3=Moderate Assistance 7=Complete IndependenceIRFPAI Quality Coding Scale 6 Independent with activity with or without an assistive device 5 Patient requires set up or clean up by helper. Patient completes activity by themselves 4 Supervision or touching assist (CGA). [place] provide cues , steadying assist 3 The helper provides less than half the effort to complete the activity 2 The helper provides more than half the effort to complete the activity 1 Dependent. The helper does all the effort to complete an activity 7 Patient refused to complete or attempt activity 9 The patient did not perform the activity before the current illness or injury 88 Not attempted due to Medical conditions or safety concerns Grooming (FIM): 5 (SBA, brushing teeth at sink, w/c level. Also brushed hair. Washed face and hands during shower) Bathing (FIM): 5 (Washed and dried all parts in shower, shower bench, grab bars , hand held shower. ) Upper Body (FIM): 5 (setup for shirt) Lower Body Dressing (FIM): 4 (CGA when standing, FWW. Pt was able to get pants on with setup. Able to get slipper sock on as well) Transfers (B, C, W/C) (FIM): 4 (CGA, FWW) Shower Transfer(FIM): 4 (CGA, FWW. SHower bench, grab bars) Other Treatment Pt transferred to w/c with CGA, FWW. pt educ on transfer technique and w/c position. Pt propelled herself to gym, with OT managing IV pole. Pt did 12 minutes bilat UE exercise with arm bike set at 10W, taking a couple brief recovery periods. Pt propelled w/c back to room, transferred CGA, FWW to bed and got leg into bed without assistance. Positioned on R side, for pressure relief on bottom. Pt left up in bed, 4 rails up, all needs met. Education OT Patient Education: Modified ADL techniques, Purpose of tx/functional activities, Transfer techniques, Use of adapted equipment Teaching Recipient: Patient Teaching Methods: Discussion Response to Teaching: Verbalize Understanding, Return Demonstration, Reinforcement Needed OT Short Term Goals Short Term Goals Time Frame: Dec 31, 2016 Bathing(FIM): 5 Upper Body Dressing(FIM): 5 Lower Body Dressing(FIM): 5 Toileting(FIM): 5 Transfers (B,C,W/C) (FIM): 4 (CGA) Toilet/Commode Transfer(FIM): 5 Additional Short Term Goals: 2-Verbalize Understanding, 3-ImproveStrength/Anatoly 1=Demonstrate adherence to instructed precautions during ADL tasks. 2=Patient will verbalize/demonstrate understanding of assistive devices/ modifications for ADL. 3=Patient will improve strength/tolerance for activity to enable patient to perform ADL's. OT [employer] Goals Care Home Goals Time Frame: Jan 14, 2017 Eating (FIM): 6 Eating (QC): 6 Groomin Oral Hygiene (QC): 6 Bathing(FIM): 6 Shower/Bathe Self (QC): 6 Upper Body Dressing(FIM): 6 Upper Body Dressing (QC): 6 Lower Body Dressing(FIM): 6 Lower Body Dressing (QC): 6 On/Off Footwear (QC): 6 Toileting(FIM): 6 Toileting Hygiene (QC): 6 Toilet/Commode Transfer(FIM): 6 Toilet/Commode Transfer (QC): 6 Shower Transfer(FIM): 6 Increase bilat UE strength to 5/5 as needed for functional mobility and ADLs Additional Goals: 2-Verbalize Understanding, 3-ImproveStrength/Anatoly 1=Demonstrate adherence to instructed precautions during ADL tasks. 2=Patient will verbalize/demonstrate understanding of assistive devices/ modifications for ADL. 3=Patient will improve strength/tolerance for activity to enable patient to perform ADL's. OT Education/Plan Problem List/Assessment Pt would benefit from skilled OT to increase her independence in basic self care to allow her to return home safely to live with and family after L BKA. Discharge Recommendations Plan/Recommendations: Continue POC Treatment Plan/Plan of Care Patient would benefit from OT for education, treatment and training to promote independence in ADL's, mobility, safety and/or upper extremity function for ADL' s. Plan of Care: ADL Retraining, Functional Mobility, Group Exercise/Act as Ind ( education, exercise, activity tolerance, socialization, funct activities), UE Funct Exercise/Act, UE Neuromus Re-Ed/Coord Treatment Duration: Jan 14, 2017 Visits Per Week: 10-11 Minutes/Day (M-F): 75-90 Minutes/Day (Sat/Matamoros): PRN Agreement: Yes Rehab Potential: Fair Time/GCodes Start Time: 08:30 Stop Time: 10:00 Total Time Billed (hr/min): 90 Billed Treatment Time visit, 60 minutes ADL, 30 minutes exercise MAURA SARKAR OT Dec 26, 2016 10:07
--- NOTE | 2016-12-26 10:52 | PM & R (SOAP) Progress Note ---
Subjective Subjective/Events-last exam Patient was seen in her room this AM Had some diarrhea this AM But feeling better now and Stool Negative for CDIF Objective Exam Last Set of Vital Signs Vital Signs Date Time Temp Pulse Resp B/P Pulse Ox O2 Delivery O2 Flow Rate FiO2 12/26/16 09:00 Room Air 12/26/16 05:30 98.6 85 18 159/76 99 Capillary Refill : I&O Intake and Output 12/26/16 00:00 Intake Total 1950 ml Output Total 1650 ml Balance 300 ml Intake Oral 1630 ml IV Total 320 ml Output Urine Total 1650 ml # Voids 4 # Bowel Movements 5 General: Alert, Oriented X3, Cooperative, No Acute Distress HEENT: Atraumatic, PERRLA, EOMI, Mucous Memb Moist/[place] Neck: Supple, No JVD Lungs: Clear to Auscultation Heart: Regular Rate Abdomen: Normal Bowel Sounds, Soft, No Tenderness Extremities: Other (Left BKA wrapped) Neuro: Other (sensation deminished to touch rt foot Generalized weakness) Other physical findings Pressure sores sacrum Results Lab Laboratory Tests 12/24/16 16:03: Glucometer 143H 12/24/16 20:20: Glucometer 241H 12/25/16 05:29: Glucometer 90 12/25/16 05:30: Alanine Aminotransferase (ALT/SGPT) 16, Albumin 2.4L, Alkaline Phosphatase 103, Anion Gap 11, Aspartate Amino Transf (AST/SGOT) 18, BUN/Creatinine Ratio 10, Basophils # (Auto) 0.0, Basophils (%) (Auto) 0, Blood Urea Nitrogen 7, Calcium Level 8.5, Carbon Dioxide Level 23, Chloride Level 104, Creatinine 0.72, Eosinophils # (Auto) 0.2, Eosinophils (%) (Auto) 2, Estimat Glomerular Filtration Rate > 60, Glucose Level 88, Hematocrit 30L, Hemoglobin 10.1L, Lymphocytes # (Auto) 1.6, Lymphocytes (%) (Auto) 23, Mean Corpuscular Hemoglobin 30, Mean Corpuscular Hemoglobin Concent 34, Mean Corpuscular Volume 89, Mean Platelet Volume 8.4, Monocytes # (Auto) 0.7, Monocytes (%) (Auto) 11, Neutrophils # (Auto) 4.4, Neutrophils (%) (Auto) 64, Platelet Count 623H, Potassium Level 3.2L, Red Blood Count 3.38L, Red Cell Distribution Width 14.2, Sodium Level 138, Total Bilirubin 0.2, Total Protein 6.9, White Blood Count 6.9 12/25/16 11:08: Glucometer 132H 12/25/16 15:55: Glucometer 195H 12/25/16 20:08: Glucometer 184H 12/25/16 22:53: Glucometer 134H 12/26/16 05:20: Glucometer 103 12/26/16 05:55: Anion Gap 10, BUN/Creatinine Ratio 11, Blood Urea Nitrogen 7, Calcium Level 8.3L , Carbon Dioxide Level 25, Chloride Level 104, Creatinine 0.63, Estimat Glomerular Filtration Rate > 60, Glucose Level 102, Potassium Level 3.1L, Sodium Level 139 Microbiology 12/26/16 C. difficile GDH Antigen & Toxins - Final, Complete Assessment/Plan Assessment S/P LBKA DM Controlled Pressure sores COPD Postop anemia Plan Continue PT/OT/Wound care Appreciate Dr mena note and orders. Monitor Accuchecks and adjuste meds as needed WANG ADAMS MD Dec 26, 2016 10:52
--- NOTE | 2016-12-26 10:58 | Individualized Plan of Care ---
Individualized Plan of Care Rehab Nursing IPOC Order Admission Date Dec 24, 2016 at 14:45 Current Orders Patient Visit (12/25/16 ) Exercise Therap, Ea 15 Min (12/25/16 ) Gait Training, Ea 15 Min (12/25/16 ) Patient Visit (12/25/16 ) Turn And Reposition Q2HR (12/25/16 17:37) Sodium Chloride Flush (Catheter Flush Sy (12/25/16 23:30) Basic Metabolic Panel (12/27/16 06:00) Potassium Chloride (Tablet) (Klor Con Ta (12/26/16 08:30) Potassium Chloride (Tablet) (Klor Con Ta (12/26/16 08:23) C Difficile Ag + Toxin A/B. (12/26/16 08:17) Rehab Nursing Orders: Bladder Program, Diseage Management, Edu in Press Rel Techn, Hydration Management, Nutrition Management, Pain Management Toilet every (bladder): (hrs): q 2hours PT IPOC Problem List: Activity Tolerance, Functional Strength, Safety, Balance, Gait, Transfer, Bed Mobility, ROM Treatment Plan: Continue Plan of Care Bed Mobility, Education, Functional Activity Anatoly, Functional Strength, Group Therapy, Gait, Safety, Therapeutic Exercise, Transfers Treatment Duration: Jan 14, 2017 Visits Per Week: 10-11 Minutes/Day (M-F): 60-90 Minutes/Day (Sat/Matamoros): 15-30 OT IPOC Problems: Decreased Activ Tolerance, Decreased UE Strength, Dependent Transfers , Impaired Coordination, Impaired Funct Balance, Impaired Self-Care Skills OT Problems Pt would benefit from skilled OT to increase her independence in basic self care to allow her to return home safely to live with and family after L BKA. Plan of Care: ADL Retraining, Functional Mobility, Group Exercise/Act as Ind ( education, exercise, activity tolerance, socialization, funct activities), UE Funct Exercise/Act, UE Neuromus Re-Ed/Coord Treatment Duration: Jan 14, 2017 Visits Per Week: 10-11 Minutes/Day (M-F): 75-90 Minutes/Day (Sat/Matamoros): PRN ST IPOC Speech Therapy Treatment Plan: Discontinue ST Physician IPOC Medical Issues being managed closely and that require the 24 hour availability of a physician:Wound care and skin care Management DM and HTN Pain management Medical Issues: Bowel/Bladder Function, DVT Prophylaxis, Falls Precautions, Fluid/Electrolyte/Nutrition Balance, Infection Protection, Pain Management, Weight Bearing Precautions, Wound Care, Other (List) (as per above) Brief Synthesis of Preadmission Screen, Post-Admission Evaluation, and Therapy Evaluations: 51 yo female who recently moved to [place] from [facility] with spouse to live with her son who 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
[2016-12-26] MEDS: HYDROcodone/APAP 10 MG/325 MG (LORTAB) TAB PO PRN ×2 (12:41→18:36)
--- NOTE | 2016-12-26 12:57 | Physical Therapy Daily Note ---
PT Daily Note-Current Subjective Patient in bed pre tx, agrees to PT, has no complaints of pain. Patient is on an air bed now due to her backside. Appearance Patient BTB post tx with nurse call, phone, tray, all needs met. Mental Status Patient Orientation: Normal For Age Transfers Functional [place] Measure 0=Not Assessed/NA 4=Minimal Assistance 1=Total Assistance 5=Supervision or Setup 2=Maximal Assistance 6=Modified [place] 3=Moderate Assistance 7=Complete IndependenceIRFPAI Quality Coding Scale 6 Independent with activity with or without an assistive device 5 Patient requires set up or clean up by helper. Patient completes activity by themselves 4 Supervision or touching assist (CGA). [place] provide cues , steadying assist 3 The helper provides less than half the effort to complete the activity 2 The helper provides more than half the effort to complete the activity 1 Dependent. The helper does all the effort to complete an activity 7 Patient refused to complete or attempt activity 9 The patient did not perform the activity before the current illness or injury 88 Not attempted due to Medical conditions or safety concerns Transfers (B, C, W/C) (FIM): 4 Scootin Rollin Supine to/from Sit: 5 Sit to/from Stand: 4 Bed to/from Chair: 4 Patient performs a stand pivot transfer using a rolling walker with CGA, but she does need min assist when she is tired or from very low surfaces. Gait Training Gait (FIM): 1 Distance: 20'x2, 10'x3 Gait Level of Assist: 4 Gait Persons Needed: 1 Gait Assistive Device: FWW slow, patient hops on right leg, no LOB but she does fatigue quickly, needs rest breaks between walking Exercises prone hip flexor stretching for 5 min Treatments bed mobility and transfers (patient performed approx 10 stand pivot transfers), ambulation, ROM exercises Assessment Current Status: Fair Progress improving strength and endurance PT Short Term Goals Short Term Goals Time Frame: Dec 31, 2016 Transfers (B,C,W/C) (FIM): 4 (CGA) Gait (FIM): 2 Gait Distance Comment: 50' Gait Level of Assist: 4 (CGA) Gait Assistive Device: FWW Wheelchair Distance: 150'x2 PT Care Home Goals Process Assistant Goals PT Care Home Goals Time Frame: Jan 14, 2017 Transfers (B,C,W/C) (FIM): 5 Sit to Lying (QC): 6 Lying-Sitting on Side/Bed(QC): 6 Sit to Stand (QC): 4 Rollin Roll Left to Right (QC): 6 Chair/[id number]-Ifdzq Xfer(QC): 4 Car Transfer (QC): 4 Does the Patient Walk: Yes Gait (FIM): 5 Distance: 150' Walk 10 feet (QC): 4 Walk 10ft-Uneven Surface(QC): 4 Walk 50ft with 2 Turns (QC): 4 Walk 150 ft (QC): 4 Gait Level of Assist: 5 Gait Assistive Device: FWW Stairs (FIM): 2 # of Steps: 4 1 Step (curb) (QC): 4 4 Steps (QC): 4 12 Steps (QC): 88 Stairs Level Of Assist: 4 Picking up an Object (QC): 88 PT Plan Problem List Problem List: Activity Tolerance, Functional Strength, Safety, Balance, Gait, Transfer, Bed Mobility, ROM Treatment/Plan Treatment Plan: Continue Plan of Care Treatment Plan: Bed Mobility, Education, Functional Activity Anatoly, Functional Strength, Group Therapy, Gait, Safety, Therapeutic Exercise, Transfers Treatment Duration: Jan 14, 2017 Visits Per Week: 10-11 Minutes/Day (M-F): 60-90 Minutes/Day (Sat/Matamoros): 15-30 Safety Risks/Education Patient Education: Gait Training, Transfer Techniques, Correct Positioning, Safety Issues Teaching Recipient: Patient Teaching Methods: Demonstration, Discussion Response to Teaching: Reinforcement Needed Time/GCodes Time In: 1120 Time Out: 1220 Total Billed Treatment Time: 60 Total Billed Treatment 1 visit GT 45 min FA 15 min DESIRE SORIA PT Dec 26, 2016 12:57
--- NOTE | 2016-12-26 14:15 | Physical Therapy Daily Note ---
PT Daily Note-Current Subjective Patient in bed sleeping pre tx, agrees to PT, no complaints of pain. Appearance Patient in bed post tx, has nurse call, phone, tray, all needs met. Mental Status Patient Orientation: Normal For Age Transfers Functional [place] Measure 0=Not Assessed/NA 4=Minimal Assistance 1=Total Assistance 5=Supervision or Setup 2=Maximal Assistance 6=Modified [place] 3=Moderate Assistance 7=Complete IndependenceIRFPAI Quality Coding Scale 6 Independent with activity with or without an assistive device 5 Patient requires set up or clean up by helper. Patient completes activity by themselves 4 Supervision or touching assist (CGA). [place] provide cues , steadying assist 3 The helper provides less than half the effort to complete the activity 2 The helper provides more than half the effort to complete the activity 1 Dependent. The helper does all the effort to complete an activity 7 Patient refused to complete or attempt activity 9 The patient did not perform the activity before the current illness or injury 88 Not attempted due to Medical conditions or safety concerns Transfers (B, C, W/C) (FIM): 4 Scootin Rollin Supine to/from Sit: 6 Sit to/from Stand: 5 Bed to/from Chair: 4 Wheelchair Training Wheelchair (FIM): 6 Distance: 150'x2 Type of Wheelchair: Manual patient uses both arms and her right leg to propel Exercises NuStep Minutes: 15 NuStep Workload: 5 Treatments bed mobility and transfers, functional strengthening Assessment Current Status: Fair Progress Patient seems to be quickly improving in strength and endurance PT Short Term Goals Short Term Goals Time Frame: Dec 31, 2016 Transfers (B,C,W/C) (FIM): 4 (CGA) Gait (FIM): 2 Gait Distance Comment: 50' Gait Level of Assist: 4 (CGA) Gait Assistive Device: FWW Wheelchair Distance: 150'x2 PT Fdc Goals Candy Vendor Goals PT Candy Vendor Goals Time Frame: Jan 14, 2017 Transfers (B,C,W/C) (FIM): 5 Sit to Lying (QC): 6 Lying-Sitting on Side/Bed(QC): 6 Sit to Stand (QC): 4 Rollin Roll Left to Right (QC): 6 Chair/Ucs-ye-Rzazf Xfer(QC): 4 Car Transfer (QC): 4 Does the Patient Walk: Yes Gait (FIM): 5 Distance: 150' Walk 10 feet (QC): 4 Walk 10ft-Uneven Surface(QC): 4 Walk 50ft with 2 Turns (QC): 4 Walk 150 ft (QC): 4 Gait Level of Assist: 5 Gait Assistive Device: FWW Stairs (FIM): 2 # of Steps: 4 1 Step (curb) (QC): 4 4 Steps (QC): 4 12 Steps (QC): 88 Stairs Level Of Assist: 4 Picking up an Object (QC): 88 PT Plan Problem List Problem List: Activity Tolerance, Functional Strength, Safety, Balance, Gait, Transfer, Bed Mobility, ROM Treatment/Plan Treatment Plan: Continue Plan of Care Treatment Plan: Bed Mobility, Education, Functional Activity Anatoly, Functional Strength, Group Therapy, Gait, Safety, Therapeutic Exercise, Transfers Treatment Duration: Jan 14, 2017 Visits Per Week: 10-11 Minutes/Day (M-F): 60-90 Minutes/Day (Sat/Matamoros): 15-30 Safety Risks/Education Patient Education: Transfer Techniques, Correct Positioning, W/C Management, Safety Issues Teaching Recipient: Patient Teaching Methods: Demonstration, Discussion Response to Teaching: Reinforcement Needed Time/GCodes Time In: 1345 Time Out: 1415 Total Billed Treatment Time: 30 Total Billed Treatment 1 visit EX 15 min FA 15 min DESIRE SORIA PT Dec 26, 2016 14:15
--- NOTE | 2016-12-26 16:23 | Wound Care Progress Note ---
Subjective Subjective Subjective/Events-last exam 51 year old female admitted with unstageable pressure ulcer of sacral area, after prolonged hospitalization for peripheral vascular disease and L BKA. Moderate pain in sacral area, no pain in L leg. PMH: diabetes, COPD, HTN. FH: none pertinent. SH: , visiting from [place], past smoker. Review of Systems General: No Chills, No Night Sweats, No Fatigue, No Malaise, No Appetite, No Other HEENT: No Head Aches, No Visual Changes, No Eye Pain, No Ear Pain, No Dysphasia , No Sinus Congestion, No Post Nasal Drip, No Sore Throat, No Other Pulmonary: No Dyspnea, No Cough, No Pleuritic Chest Pain, No Other Cardiovascular: No: Chest Pain, Edema, Lt Headedness, Orthopnea, Other, Palpitations, Paroxysmal Noc. Dyspnea Gastrointestinal: : Nausea Genitourinary: No Dysuria, No Frequency, No Incontinence, No Hematuria, No Retention, No Other Musculoskeletal: : leg pain Neurological: : Weakness Objective Exam Last Set of Vital Signs Vital Signs Date Time Temp Pulse Resp B/P Pulse Ox O2 Delivery O2 Flow Rate FiO2 12/26/16 09:00 Room Air 12/26/16 05:30 98.6 85 18 159/76 99 Capillary Refill : I&O Intake and Output 12/26/16 00:00 Intake Total 1950 ml Output Total 1650 ml Balance 300 ml Intake Oral 1630 ml IV Total 320 ml Output Urine Total 1650 ml # Voids 4 # Bowel Movements 5 General: Alert, No Acute Distress HEENT: Atraumatic Neck: Supple Lungs: Clear to Auscultation, Normal Air Movement Heart: Regular Rate Abdomen: Normal Bowel Sounds, Soft Extremities: Other (L BKA with healing incision.) Skin: Other (clustered area of pressure ulcer 3.5 x 2.8 x 0.3 cm, base 100% slough.) Neuro: Normal Speech, Cranial Nerves 3-12 NL Psych/Mental Status: Mental Status NL, Mood NL Results Lab Laboratory Tests 12/25/16 20:08: Glucometer 184H 12/25/16 22:53: Glucometer 134H 12/26/16 05:20: Glucometer 103 12/26/16 05:55: Anion Gap 10, BUN/Creatinine Ratio 11, Blood Urea Nitrogen 7, Calcium Level 8.3L , Carbon Dioxide Level 25, Chloride Level 104, Creatinine 0.63, Estimat Glomerular Filtration Rate > 60, Glucose Level 102, Potassium Level 3.1L, Sodium Level 139 12/26/16 11:43: Glucometer 187H 12/26/16 16:01: Glucometer 162H Microbiology 12/26/16 C. difficile GDH Antigen & Toxins - Final, Complete Assessment/Plan Assessment/Plan Assessment/Plan 1. Pressure ulcer, sacrum, unstageable. 2. S/P L BKA for gangrene. 3. Diabetes mellitus. Plan: RADU mattress, repositioning, barrier cream to wounded area. KRISTIE VALLADARES MD Dec 26, 2016 16:23
[2016-12-26 18:20] VITALS: BP 149/76
[2016-12-26] MEDS: ZINC OXIDE 16% OINT (BUTT PASTE) 113 GM TUBE TOP SCH (20:18)
[2016-12-26] MEDS: inSUlin DETERMIR 1 UNIT/0.01 ML (LEVEMIR) CHARGE PER UNIT SQ SCH (20:18)
[2016-12-27 05:41] LABS: ANION GAP 11 MMOL/L (5-14); BLOOD UREA NITROGEN 7 MG/DL (7-18); BUN/CREATININE RATIO 11; CALCIUM 8.6 MG/DL (8.5-10.1); CARBON DIOXIDE 23 MMOL/L (21-32); CHLORIDE 103 MMOL/L (98-107); CREATININE SERUM 0.66 MG/DL (0.60-1.30); GFR ESTIMATED > 60; GLUCOSE 93 MG/DL (70-105); POTASSIUM 3.5 MMOL/L (3.6-5.0); SODIUM 137 MMOL/L (135-145)
[2016-12-27] MEDS: inSUlin ASPART (NovoLOG) 1 UNIT/0.01 ML (CHARGE PER UNIT) SC SCH ×4 (06:00→20:53)
[2016-12-27] MEDS: metFORMIN XR 500 MG (GLUCOPHAGE XR) TAB PO SCH ×2 (06:21→17:23)
[2016-12-27] MEDS: PIPERACILLIN/TAZOBACTAM 4.5 GM/NS 100 ML IVPB IV SCH ×6 (06:22→23:23)
[2016-12-27] MEDS: LACTOBACILLUS Acidoph/Bulgar (LACTINEX/FLORANEX) TAB PO SCH ×3 (06:22→16:00)
[2016-12-27] MEDS: CATHETER FLUSH 10 ML SYR IV PRN (06:23)
[2016-12-27 06:35] VITALS: BP 145/75
[2016-12-27] MEDS ORDERED: KCL 10 MEQ TAB (MICRO K) PO NR (08:00)
--- NOTE | 2016-12-27 08:02 | Progress Note (SOAP) ---
Subjective Subjective/Events-last exam amputee. Diarrhea resolved. C. difficile negative. Patient feeling better. Patient voices no complaints Objective Exam Vital Signs Date Time Temp Pulse Resp B/P Pulse Ox O2 Delivery O2 Flow Rate FiO2 12/27/16 06:35 97.3 98 18 145/75 98 Room Air 12/26/16 20:15 Room Air 12/26/16 18:20 98.3 97 16 149/76 99 12/26/16 09:00 Room Air I & O 12/27/16 07:00 Intake Total 1712 ml Balance 1712 ml Capillary Refill : General Appearance: No Apparent Distress WD/WN HEENT: Normal ENT Inspection Neck: Full Range of Motion Normal Inspection Respiratory: Chest Non Tender Lungs Clear Normal Breath Sounds No Accessory Muscle Use No Respiratory Distress Cardiovascular: Regular Rate, Rhythm No Murmur Results Lab Laboratory Tests 12/27/16 05:15 Laboratory Tests 12/26/16 11:43: Glucometer 187H 12/26/16 16:01: Glucometer 162H 12/26/16 20:03: Glucometer 161H 12/27/16 05:15: Anion Gap 11, BUN/Creatinine Ratio 11, Blood Urea Nitrogen 7, Calcium Level 8.6 , Carbon Dioxide Level 23, Chloride Level 103, Creatinine 0.66, Estimat Glomerular Filtration Rate > 60, Glucose Level 93, Potassium Level 3.5L, Sodium Level 137 Microbiology 12/26/16 C. difficile GDH Antigen & Toxins - Final, Complete Assessment/Plan Assessment/Plan Assess & Plan/Chief Complaint left below the knee amputation. Diabetes. Hypertension. COPD. Former smoker. Sepsis. Patient on IV antibiotics. . 12/26/16. New-onset diarrhea. Left below the knee amputation. Diabetes. Hypertension. COPD. Sepsis. To check for C. difficile. . 12/27/16. Left below the knee amputation. Diabetes. Hypertension. COPD. C. difficile negative. Diarrhea no more Clinical Quality Measures DVT/VTE Risk/Contraindication: Risk Factor Score Per Nursin RFS Level Per Nursing on Admit: 4+=Very High RAYMOND SHELLEY DO Dec 27, 2016 08:02
[2016-12-27] MEDS: GABAPENTIN 100 MG (NEURONTIN) CAP PO SCH ×2 (08:25→20:19)
[2016-12-27] MEDS: amLODIPine 5 MG (NORVASC) TAB PO SCH (08:25)
[2016-12-27] MEDS: ZINC OXIDE 16% OINT (BUTT PASTE) 113 GM TUBE TOP SCH ×2 (08:25→20:24)
[2016-12-27] MEDS: lisINopril 10 MG (PRINIVIL) TAB PO SCH (08:26)
--- NOTE | 2016-12-27 09:23 | Physical Therapy Daily Note ---
PT Daily Note-Current Subjective Patient in bed pre tx, agrees to PT. Patient has 8/10 pain in left leg, nurse notified. Appearance Patient in recliner post tx, has nurse call, phone, tray, all needs met. Mental Status Patient Orientation: Normal For Age Attachments: IV Transfers Functional [place] Measure 0=Not Assessed/NA 4=Minimal Assistance 1=Total Assistance 5=Supervision or Setup 2=Maximal Assistance 6=Modified [place] 3=Moderate Assistance 7=Complete IndependenceIRFPAI Quality Coding Scale 6 Independent with activity with or without an assistive device 5 Patient requires set up or clean up by helper. Patient completes activity by themselves 4 Supervision or touching assist (CGA). [place] provide cues , steadying assist 3 The helper provides less than half the effort to complete the activity 2 The helper provides more than half the effort to complete the activity 1 Dependent. The helper does all the effort to complete an activity 7 Patient refused to complete or attempt activity 9 The patient did not perform the activity before the current illness or injury 88 Not attempted due to Medical conditions or safety concerns Transfers (B, C, W/C) (FIM): 5 Scootin Rollin Supine to/from Sit: 6 Sit to/from Stand: 5 Bed to/from Chair: 5 occasional cues for hand placement, patient also performed a toilet transfer because she was toileted after getting out of bed and she did this also with SBA , but she was CGA when pulling up her pants Gait Training Gait (FIM): 1 Distance: 20'x3 Gait Level of Assist: 4 (CGA) Gait Persons Needed: 1 Gait Assistive Device: FWW Wheelchair Training Does the Pt Use a Wheelchair?: Yes Wheelchair (FIM): 6 Distance: 150'x2 Type of Wheelchair: Manual Exercises Supine Ex: Quad Set, Glut sets, Straight leg raise, Hip abd/add Supine Reps: 20 5 min prone hip flexor stretch, 5 min alternating LAQ Treatments bed mobility and transfers, ambulation, wheelchair mobility, functional strengthening, stretching Assessment Current Status: Fair Progress patient continues to show increasing strength, mobility, balance PT Short Term Goals Short Term Goals Time Frame: Dec 31, 2016 Transfers (B,C,W/C) (FIM): 4 (CGA) Gait (FIM): 2 Gait Distance Comment: 50' Gait Level of Assist: 4 (CGA) Gait Assistive Device: FWW Wheelchair Distance: 150'x2 PT Detention Goals Detention Goals PT Forgeman Helper Goals Time Frame: Jan 14, 2017 Transfers (B,C,W/C) (FIM): 5 Sit to Lying (QC): 6 Lying-Sitting on Side/Bed(QC): 6 Sit to Stand (QC): 4 Rollin Roll Left to Right (QC): 6 Chair/Iso-gj-Hxwjx Xfer(QC): 4 Car Transfer (QC): 4 Does the Patient Walk: Yes Gait (FIM): 5 Distance: 150' Walk 10 feet (QC): 4 Walk 10ft-Uneven Surface(QC): 4 Walk 50ft with 2 Turns (QC): 4 Walk 150 ft (QC): 4 Gait Level of Assist: 5 Gait Assistive Device: FWW Stairs (FIM): 2 # of Steps: 4 1 Step (curb) (QC): 4 4 Steps (QC): 4 12 Steps (QC): 88 Stairs Level Of Assist: 4 Picking up an Object (QC): 88 PT Plan Problem List Problem List: Activity Tolerance, Functional Strength, Safety, Balance, Gait, Transfer, ROM Treatment/Plan Treatment Plan: Continue Plan of Care Treatment Plan: Bed Mobility, Education, Functional Activity Anatoly, Functional Strength, Group Therapy, Gait, Safety, Therapeutic Exercise, Transfers Treatment Duration: Jan 14, 2017 Visits Per Week: 10-11 Minutes/Day (M-F): 60-90 Minutes/Day (Sat/[place]): 15-30 Safety Risks/Education Patient Education: Gait Training, Transfer Techniques, Correct Positioning, W/ C Management, Disease Process, Safety Issues Teaching Recipient: Patient Teaching Methods: Demonstration, Discussion Response to Teaching: Reinforcement Needed Time/GCodes Time In: 800 Time Out: 900 Total Billed Treatment Time: 60 Total Billed Treatment 1 visit\ GT 30 min EX 30 min DESIRE SORIA PT Dec 27, 2016 09:22
--- NOTE | 2016-12-27 12:06 | Occupational Ther Daily Note ---
OT Current Status-Daily Note Subjective Pt seen in room, up in recliner, agreeable to OT. No pain mentioned. Pt declined shower but agreed to sponge bath Appearance Alert, cooperative Mental Status/Objective Functional [place] Measure 0=Not Assessed/NA 4=Minimal Assistance 1=Total Assistance 5=Supervision or Setup 2=Maximal Assistance 6=Modified [place] 3=Moderate Assistance 7=Complete [place] ADL-Treatment Functional [place] Measure 0=Not Assessed/NA 4=Minimal Assistance 1=Total Assistance 5=Supervision or Setup 2=Maximal Assistance 6=Modified [place] 3=Moderate Assistance 7=Complete IndependenceIRFPAI Quality Coding Scale 6 Independent with activity with or without an assistive device 5 Patient requires set up or clean up by helper. Patient completes activity by themselves 4 Supervision or touching assist (CGA). [place] provide cues , steadying assist 3 The helper provides less than half the effort to complete the activity 2 The helper provides more than half the effort to complete the activity 1 Dependent. The helper does all the effort to complete an activity 7 Patient refused to complete or attempt activity 9 The patient did not perform the activity before the current illness or injury 88 Not attempted due to Medical conditions or safety concerns Grooming (FIM): 6 (Brushed teeth and hair at sink, w/c level. Recalled to lock brakes without cues. ) Bathing (FIM): 4 (Washed and dried all parts except bottom (due to open areas) . Butt cream applied after bathing) Upper Body (FIM): 5 (setup) Lower Body Dressing (FIM): 5 (setup, SBA when standing to pull pants up, FWW. Pt much more comfortable weight shifting with walker.) Toileting (FIM): 5 (SBA, standing to manage clothing, using grab bars, tall toilet) Toilet/Commode Transfer (FIM): 5 (SBA, transfer to regular tall toielt, using grab bar, from w/c. Pt recalled to lock brakes without cues) Other Treatment Pt propelled herself to gym, with OT bringing IV pole. Pt did 15 min bilat UE exercise on arm bike, set at 10W resistance, with one brief break. Pt propelled her self back to room, no IV pole. UE strengthening to help with standing during ADLs and transfers. Pt left on toilet, call light present, nursing notified. Education OT Patient Education: Exercise program, Modified ADL techniques, Progress toward Goal/Update tx plan, Purpose of tx/functional activities, Transfer techniques Teaching Recipient: Patient Teaching Methods: Discussion Response to Teaching: Return Demonstration OT Short Term Goals Short Term Goals Time Frame: Dec 31, 2016 Bathing(FIM): 5 Upper Body Dressing(FIM): 5 Lower Body Dressing(FIM): 5 Toileting(FIM): 5 Transfers (B,C,W/C) (FIM): 4 (CGA) Toilet/Commode Transfer(FIM): 5 Additional Short Term Goals: 2-Verbalize Understanding, 3-ImproveStrength/Anatoly 1=Demonstrate adherence to instructed precautions during ADL tasks. 2=Patient will verbalize/demonstrate understanding of assistive devices/ modifications for ADL. 3=Patient will improve strength/tolerance for activity to enable patient to perform ADL's. OT Jail Goals Facilities Maintenance Worker Goals Time Frame: Jan 14, 2017 Eating (FIM): 6 Eating (QC): 6 Groomin Oral Hygiene (QC): 6 Bathing(FIM): 6 Shower/Bathe Self (QC): 6 Upper Body Dressing(FIM): 6 Upper Body Dressing (QC): 6 Lower Body Dressing(FIM): 6 Lower Body Dressing (QC): 6 On/Off Footwear (QC): 6 Toileting(FIM): 6 Toileting Hygiene (QC): 6 Toilet/Commode Transfer(FIM): 6 Toilet/Commode Transfer (QC): 6 Shower Transfer(FIM): 6 Increase bilat UE strength to 5/5 as needed for functional mobility and ADLs Additional Goals: 2-Verbalize Understanding, 3-ImproveStrength/Anatoly 1=Demonstrate adherence to instructed precautions during ADL tasks. 2=Patient will verbalize/demonstrate understanding of assistive devices/ modifications for ADL. 3=Patient will improve strength/tolerance for activity to enable patient to perform ADL's. OT Education/Plan Problem List/Assessment Pt would benefit from skilled OT to increase her independence in basic self care to allow her to return home safely to live with and family after L BKA. Discharge Recommendations Plan/Recommendations: Continue POC Treatment Plan/Plan of Care Patient would benefit from OT for education, treatment and training to promote independence in ADL's, mobility, safety and/or upper extremity function for ADL' s. Plan of Care: ADL Retraining, Functional Mobility, Group Exercise/Act as Ind ( education, exercise, activity tolerance, socialization, funct activities), UE Funct Exercise/Act, UE Neuromus Re-Ed/Coord Treatment Duration: Jan 14, 2017 Visits Per Week: 10-11 Minutes/Day (M-F): 75-90 Minutes/Day (Sat/[place]): PRN Agreement: Yes Rehab Potential: Fair Time/GCodes Start Time: 09:30 Stop Time: 10:35 Total Time Billed (hr/min): 65 Billed Treatment Time visit, ADL 45 minutes, exercise 20 minutes MAURA SARKAR OT Dec 27, 2016 12:06
[2016-12-27] MEDS: HYDROcodone/APAP 10 MG/325 MG (LORTAB) TAB PO PRN ×2 (13:14→20:23)
--- NOTE | 2016-12-27 14:52 | Therapy Group Daily Note ---
Therapy Daily Group Note Patient Education Topic Other List Below (ARU description and expecations) Exercises LE Seated Exercise, UE Exercise Other/Notes Pt transported to OT/PT group via w/c. Group consisted of introductions (name, place living, favorite childhood memory), socialization, UE/LE seated exercises , memory recall activities. Pt did contribute to activities and discussion appropriately. After therapy, PT took over care of pt. All needs met. Start Time: 13:00 Stop Time: 14:00 Total Billed Treatment Time: 60 Total Billed Treatment 1-GRP GLORIA KENNY Dec 27, 2016 14:52
--- NOTE | 2016-12-27 15:20 | Physical Therapy Daily Note ---
PT Daily Note-Current Subjective Patient coming from group therapy for PT. She states she does have some discomfort in her right foot. Appearance Patient in bed post tx, has nurse call, phone, tray, all needs met. Mental Status Patient Orientation: Normal For Age Transfers Functional [place] Measure 0=Not Assessed/NA 4=Minimal Assistance 1=Total Assistance 5=Supervision or Setup 2=Maximal Assistance 6=Modified [place] 3=Moderate Assistance 7=Complete IndependenceIRFPAI Quality Coding Scale 6 Independent with activity with or without an assistive device 5 Patient requires set up or clean up by helper. Patient completes activity by themselves 4 Supervision or touching assist (CGA). [place] provide cues , steadying assist 3 The helper provides less than half the effort to complete the activity 2 The helper provides more than half the effort to complete the activity 1 Dependent. The helper does all the effort to complete an activity 7 Patient refused to complete or attempt activity 9 The patient did not perform the activity before the current illness or injury 88 Not attempted due to Medical conditions or safety concerns Transfers (B, C, W/C) (FIM): 4 Scootin Rollin Supine to/from Sit: 5 Sit to/from Stand: 4 Bed to/from Chair: 4 Gait Training Gait (FIM): 1 Distance: 20'x2 Gait Level of Assist: 4 Gait Persons Needed: 1 Gait Assistive Device: FWW CGA with ambulation, no LOB Exercises NuStep Minutes: 15 NuStep Workload: 5 Treatments bed mobility and transfers, wheelchair mobility from the gym back to her room, ambulation, functional strengthening Assessment Current Status: Fair Progress Patient has pretty tired this afternoon. She had to take several rest breaks during the stepper. PT Short Term Goals Short Term Goals Time Frame: Dec 31, 2016 Transfers (B,C,W/C) (FIM): 4 (CGA) Gait (FIM): 2 Gait Distance Comment: 50' Gait Level of Assist: 4 (CGA) Gait Assistive Device: FWW Wheelchair Distance: 150'x2 PT Kennel Manager Dog Track Goals Kennel Manager Dog Track Goals PT Fpc Goals Time Frame: Jan 14, 2017 Transfers (B,C,W/C) (FIM): 5 Sit to Lying (QC): 6 Lying-Sitting on Side/Bed(QC): 6 Sit to Stand (QC): 4 Rollin Roll Left to Right (QC): 6 Chair/Ndd-on-Tuuus Xfer(QC): 4 Car Transfer (QC): 4 Does the Patient Walk: Yes Gait (FIM): 5 Distance: 150' Walk 10 feet (QC): 4 Walk 10ft-Uneven Surface(QC): 4 Walk 50ft with 2 Turns (QC): 4 Walk 150 ft (QC): 4 Gait Level of Assist: 5 Gait Assistive Device: FWW Stairs (FIM): 2 # of Steps: 4 1 Step (curb) (QC): 4 4 Steps (QC): 4 12 Steps (QC): 88 Stairs Level Of Assist: 4 Picking up an Object (QC): 88 PT Plan Problem List Problem List: Activity Tolerance, Functional Strength, Safety, Balance, Gait, Transfer, Bed Mobility, ROM Treatment/Plan Treatment Plan: Continue Plan of Care Treatment Plan: Bed Mobility, Education, Functional Activity Anatoly, Functional Strength, Group Therapy, Gait, Safety, Therapeutic Exercise, Transfers Treatment Duration: Jan 14, 2017 Visits Per Week: 10-11 Minutes/Day (M-F): 60-90 Minutes/Day (Sat/[place]): 15-30 Safety Risks/Education Patient Education: Gait Training, Transfer Techniques, Correct Positioning, Safety Issues Teaching Recipient: Patient Teaching Methods: Demonstration, Discussion Response to Teaching: Reinforcement Needed Time/GCodes Time In: 1300 Time Out: 1340 Total Billed Treatment Time: 40 Total Billed Treatment 1 visit EX 15 min GT 15 min FA 10 min DESIRE SORIA PT Dec 27, 2016 15:19
[2016-12-27 18:31] VITALS: BP 111/71
[2016-12-27] MEDS: inSUlin DETERMIR 1 UNIT/0.01 ML (LEVEMIR) CHARGE PER UNIT SQ SCH (20:54)
[2016-12-28 05:06] VITALS: BP 130/74
[2016-12-28] MEDS: inSUlin ASPART (NovoLOG) 1 UNIT/0.01 ML (CHARGE PER UNIT) SC SCH ×4 (06:00→20:38)
[2016-12-28] MEDS: PIPERACILLIN/TAZOBACTAM 4.5 GM/NS 100 ML IVPB IV SCH ×6 (06:32→23:34)
[2016-12-28] MEDS: LACTOBACILLUS Acidoph/Bulgar (LACTINEX/FLORANEX) TAB PO SCH ×3 (06:32→16:01)
[2016-12-28] MEDS: CATHETER FLUSH 10 ML SYR IV PRN ×2 (06:32→23:35)
[2016-12-28] MEDS: metFORMIN XR 500 MG (GLUCOPHAGE XR) TAB PO SCH ×2 (06:32→17:24)
[2016-12-28] MEDS: lisINopril 10 MG (PRINIVIL) TAB PO SCH (09:23)
[2016-12-28] MEDS: GABAPENTIN 100 MG (NEURONTIN) CAP PO SCH ×2 (09:23→20:37)
[2016-12-28] MEDS: amLODIPine 5 MG (NORVASC) TAB PO SCH (09:23)
[2016-12-28] MEDS: ZINC OXIDE 16% OINT (BUTT PASTE) 113 GM TUBE TOP SCH ×2 (11:13→20:39)
--- NOTE | 2016-12-28 11:47 | Occupational Ther Daily Note ---
OT Current Status-Daily Note Subjective "OK but is it long today?" Appearance Patient semi-reclined in bed upon OT arrival but agreeable to working with this therapist. Mental Status/Objective Patient Orientation: Person, Place, Situation Functional [place] Measure 0=Not Assessed/NA 4=Minimal Assistance 1=Total Assistance 5=Supervision or Setup 2=Maximal Assistance 6=Modified [place] 3=Moderate Assistance 7=Complete [place] ADL-Treatment Functional [place] Measure 0=Not Assessed/NA 4=Minimal Assistance 1=Total Assistance 5=Supervision or Setup 2=Maximal Assistance 6=Modified [place] 3=Moderate Assistance 7=Complete IndependenceIRFPAI Quality Coding Scale 6 Independent with activity with or without an assistive device 5 Patient requires set up or clean up by helper. Patient completes activity by themselves 4 Supervision or touching assist (CGA). [place] provide cues , steadying assist 3 The helper provides less than half the effort to complete the activity 2 The helper provides more than half the effort to complete the activity 1 Dependent. The helper does all the effort to complete an activity 7 Patient refused to complete or attempt activity 9 The patient did not perform the activity before the current illness or injury 88 Not attempted due to Medical conditions or safety concerns Other Treatment Transfer bed to wheelchair with stand by using walker. Self propelled self to the clinic for session. IV in left upper arm. Completed arm bike x 15" without break, resistance at 2.5. Completed moderate resistive theraband x multiple reps for bilateral shoulders and elbows. Moderate resistive therapy putty of gross grasp, twist and pull. Pleasant and cooperative during session. Understood need to keep upper body strength for transfers and walking. Required only 2 rest breaks. OT Short Term Goals Short Term Goals Time Frame: Dec 31, 2016 Bathing(FIM): 5 Upper Body Dressing(FIM): 5 Lower Body Dressing(FIM): 5 Toileting(FIM): 5 Transfers (B,C,W/C) (FIM): 4 (CGA) Toilet/Commode Transfer(FIM): 5 Additional Short Term Goals: 2-Verbalize Understanding, 3-ImproveStrength/Anatoly 1=Demonstrate adherence to instructed precautions during ADL tasks. 2=Patient will verbalize/demonstrate understanding of assistive devices/ modifications for ADL. 3=Patient will improve strength/tolerance for activity to enable patient to perform ADL's. OT Principal Technologist Goals Principal Technologist Goals Time Frame: Jan 14, 2017 Eating (FIM): 6 Eating (QC): 6 Groomin Oral Hygiene (QC): 6 Bathing(FIM): 6 Shower/Bathe Self (QC): 6 Upper Body Dressing(FIM): 6 Upper Body Dressing (QC): 6 Lower Body Dressing(FIM): 6 Lower Body Dressing (QC): 6 On/Off Footwear (QC): 6 Toileting(FIM): 6 Toileting Hygiene (QC): 6 Toilet/Commode Transfer(FIM): 6 Toilet/Commode Transfer (QC): 6 Shower Transfer(FIM): 6 Increase bilat UE strength to 5/5 as needed for functional mobility and ADLs Additional Goals: 2-Verbalize Understanding, 3-ImproveStrength/Anatoly 1=Demonstrate adherence to instructed precautions during ADL tasks. 2=Patient will verbalize/demonstrate understanding of assistive devices/ modifications for ADL. 3=Patient will improve strength/tolerance for activity to enable patient to perform ADL's. OT Education/Plan Problem List/Assessment Pt would benefit from skilled OT to increase her independence in basic self care to allow her to return home safely to live with and family after L BKA. Discharge Recommendations Plan/Recommendations: Continue POC Treatment Plan/Plan of Care Patient would benefit from OT for education, treatment and training to promote independence in ADL's, mobility, safety and/or upper extremity function for ADL' s. Plan of Care: ADL Retraining, Functional Mobility, Group Exercise/Act as Ind ( education, exercise, activity tolerance, socialization, funct activities), UE Funct Exercise/Act, UE Neuromus Re-Ed/Coord Treatment Duration: Jan 14, 2017 Visits Per Week: 10-11 Minutes/Day (M-F): 75-90 Minutes/Day (Sat/[place]): PRN Agreement: Yes Rehab Potential: Fair Time/GCodes Start Time: 10:00 Stop Time: 10:35 Total Time Billed (hr/min): 35 Billed Treatment Time Visit, ex x 2 G Codes Necessary: No JODI ANDRADE OT Dec 28, 2016 11:47
--- NOTE | 2016-12-28 11:54 | Physical Therapy Daily Note ---
PT Daily Note-Current Subjective Pt is in [facility] in Therapy Gym upon arrival. Pt agrees to PT. Mental Status Patient Orientation: Person, Place, Time, Situation Transfers Functional [place] Measure 0=Not Assessed/NA 4=Minimal Assistance 1=Total Assistance 5=Supervision or Setup 2=Maximal Assistance 6=Modified [place] 3=Moderate Assistance 7=Complete IndependenceIRFPAI Quality Coding Scale 6 Independent with activity with or without an assistive device 5 Patient requires set up or clean up by helper. Patient completes activity by themselves 4 Supervision or touching assist ([facility]). [place] provide cues , steadying assist 3 The helper provides less than half the effort to complete the activity 2 The helper provides more than half the effort to complete the activity 1 Dependent. The helper does all the effort to complete an activity 7 Patient refused to complete or attempt activity 9 The patient did not perform the activity before the current illness or injury 88 Not attempted due to Medical conditions or safety concerns Transfers (B, C, W/C) (FIM): 5 Scootin Sit to/from Stand: 5 Sit to Stand (QC): 5 Chair/Kac-qz-Mcaey Xfer(QC): 5 Bed to/from Chair: 5 Weight Bearing Weight Bearing Restriction: Full Weight Bearing Location Restriction: R LE Gait Training Does the Patient Walk?: Yes Gait (FIM): 3 Distance (FIM): 2=752-42 ft Distance: 50' Walk 10 feet (QC): 4 Walk 50 ft with 2 Turns(QC): 4 Walk 150 ft (QC): 88 Gait Level of Assist: 4 Gait Persons Needed: 1 Gait Assistive Device: FWW Pt has hop to gait pattern due to L BKA. Pt fatigues easy and needs short rest. Wheelchair Training Does the Pt Use a Wheelchair?: Yes Wheelchair Distance: 4=901-46 ft Distance: 100' Wheelchair Level of Assist: 6 Wheel 50 ft with 2 turns (QC): 6 Wheel 150 ft (QC): 6 Type of Wheelchair: Manual Exercises NuStep Minutes: 15 NuStep Workload: 4 Treatments Pt transfers at [facility]-Mod I. Pt used NuStep to loose RLE up before walking and for activity tolerance. Pt ambulated in Therapy Gym using FWW at [facility]. Pt returns to room to rest in bed with all needs met at end of tx. Assessment Current Status: Good Progress Pt is motivated to get better and discharge. Pt works hard and has made progress with independence of transfers and ambulation but still fatigues and needs rest. PT Short Term Goals Short Term Goals Time Frame: Dec 31, 2016 Transfers (B,C,W/C) (FIM): 4 (CGA) Gait (FIM): 2 Gait Distance Comment: 50' Gait Level of Assist: 4 (CGA) Gait Assistive Device: FWW Wheelchair Distance: 150'x2 PT Prison Goals Prison Goals PT Gate Person Goals Time Frame: Jan 14, 2017 Transfers (B,C,W/C) (FIM): 5 Sit to Lying (QC): 6 Lying-Sitting on Side/Bed(QC): 6 Sit to Stand (QC): 4 Rollin Roll Left to Right (QC): 6 Chair/Ufk-fw-Kxauh Xfer(QC): 4 Car Transfer (QC): 4 Does the Patient Walk: Yes Gait (FIM): 5 Distance: 150' Walk 10 feet (QC): 4 Walk 10ft-Uneven Surface(QC): 4 Walk 50ft with 2 Turns (QC): 4 Walk 150 ft (QC): 4 Gait Level of Assist: 5 Gait Assistive Device: FWW Stairs (FIM): 2 # of Steps: 4 1 Step (curb) (QC): 4 4 Steps (QC): 4 12 Steps (QC): 88 Stairs Level Of Assist: 4 Picking up an Object (QC): 88 PT Plan Problem List Problem List: Activity Tolerance, Functional Strength, Balance, Gait Treatment/Plan Treatment Plan: Continue Plan of Care Treatment Plan: Bed Mobility, Education, Functional Activity Anatoly, Functional Strength, Group Therapy, Gait, Safety, Therapeutic Exercise, Transfers Treatment Duration: Jan 14, 2017 Visits Per Week: 10-11 Minutes/Day (M-F): 60-90 Minutes/Day (Sat/[place]): 15-30 Safety Risks/Education Patient Education: Gait Training, Correct Positioning, Safety Issues Teaching Recipient: Patient Teaching Methods: Discussion Response to Teaching: Verbalize Understanding Time/GCodes Time In: 1040 Time Out: 1110 Total Billed Treatment Time: 30 Total Billed Treatment visit, EX (15m) & GT (15m) DAVE KANG STAFF VETERINARIAN Dec 28, 2016 11:54
[2016-12-28] MEDS: HYDROcodone/APAP 10 MG/325 MG (LORTAB) TAB PO PRN ×2 (17:24→21:03)
[2016-12-28 18:29] VITALS: BP 161/90
[2016-12-28] MEDS: inSUlin DETERMIR 1 UNIT/0.01 ML (LEVEMIR) CHARGE PER UNIT SQ SCH (20:38)
[2016-12-29 05:01] VITALS: BP 131/78
[2016-12-29] MEDS: inSUlin ASPART (NovoLOG) 1 UNIT/0.01 ML (CHARGE PER UNIT) SC SCH ×4 (05:15→20:28)
[2016-12-29] MEDS: PIPERACILLIN/TAZOBACTAM 4.5 GM/NS 100 ML IVPB IV SCH ×6 (06:39→22:28)
[2016-12-29] MEDS: metFORMIN XR 500 MG (GLUCOPHAGE XR) TAB PO SCH ×2 (06:39→17:50)
[2016-12-29] MEDS: CATHETER FLUSH 10 ML SYR IV PRN (06:39)
[2016-12-29] MEDS: LACTOBACILLUS Acidoph/Bulgar (LACTINEX/FLORANEX) TAB PO SCH ×3 (06:39→16:57)
[2016-12-29] MEDS: GABAPENTIN 100 MG (NEURONTIN) CAP PO SCH ×2 (09:07→20:27)
[2016-12-29] MEDS: amLODIPine 5 MG (NORVASC) TAB PO SCH (09:08)
[2016-12-29] MEDS: lisINopril 10 MG (PRINIVIL) TAB PO SCH (09:08)
[2016-12-29] MEDS: ZINC OXIDE 16% OINT (BUTT PASTE) 113 GM TUBE TOP SCH ×2 (09:09→20:28)
[2016-12-29] MEDS: HYDROcodone/APAP 10 MG/325 MG (LORTAB) TAB PO PRN ×2 (09:17→20:28)
[2016-12-29 17:47] VITALS: BP 130/73
[2016-12-29] MEDS: inSUlin DETERMIR 1 UNIT/0.01 ML (LEVEMIR) CHARGE PER UNIT SQ SCH (20:28)
[2016-12-29] MEDS: CYCLOBENZAPRINE 10 MG (FLEXERIL) TAB PO PRN (22:38)
[2016-12-30] MEDS: HYDROcodone/APAP 10 MG/325 MG (LORTAB) TAB PO PRN ×3 (00:30→20:14)
[2016-12-30] MEDS: ALPRAZolam 1 MG (XANAX) TAB PO PRN (00:32)
[2016-12-30 05:56] VITALS: BP 127/82
[2016-12-30] MEDS: inSUlin ASPART (NovoLOG) 1 UNIT/0.01 ML (CHARGE PER UNIT) SC SCH ×4 (05:59→20:17)
[2016-12-30] MEDS: PIPERACILLIN/TAZOBACTAM 4.5 GM/NS 100 ML IVPB IV SCH ×6 (06:10→23:24)
[2016-12-30] MEDS: metFORMIN XR 500 MG (GLUCOPHAGE XR) TAB PO SCH ×2 (06:10→17:17)
[2016-12-30] MEDS: LACTOBACILLUS Acidoph/Bulgar (LACTINEX/FLORANEX) TAB PO SCH ×3 (06:10→17:16)
[2016-12-30] MEDS: lisINopril 10 MG (PRINIVIL) TAB PO SCH (08:23)
[2016-12-30] MEDS: amLODIPine 5 MG (NORVASC) TAB PO SCH (08:23)
[2016-12-30] MEDS: GABAPENTIN 100 MG (NEURONTIN) CAP PO SCH ×2 (08:23→20:14)
[2016-12-30] MEDS: ZINC OXIDE 16% OINT (BUTT PASTE) 113 GM TUBE TOP SCH ×2 (08:25→20:16)
--- NOTE | 2016-12-30 08:33 | Progress Note (SOAP) ---
Subjective Subjective/Events-last exam patient feeling better. Patient has Gaulding in groin area. Amputee. Sepsis on antibiotics IV. Sugars are good Objective Exam Vital Signs Date Time Temp Pulse Resp B/P Pulse Ox O2 Delivery O2 Flow Rate FiO2 12/30/16 05:56 97.8 88 18 127/82 99 Room Air 12/29/16 20:30 Room Air 12/29/16 17:47 97.8 89 20 130/73 99 Room Air 12/29/16 08:30 Room Air I & O 12/30/16 07:00 Intake Total 1575 ml Balance 1575 ml Capillary Refill : General Appearance: No Apparent Distress WD/WN HEENT: Normal ENT Inspection Neck: Normal Inspection Respiratory: Chest Non Tender Lungs Clear Normal Breath Sounds No Accessory Muscle Use No Respiratory Distress Cardiovascular: Regular Rate, Rhythm Results Lab Laboratory Tests 12/29/16 12:46: Glucometer 113H 12/29/16 16:47: Glucometer 139H 12/29/16 20:26: Glucometer 155H 12/30/16 05:36: Glucometer 74 Microbiology 12/26/16 C. difficile GDH Antigen & Toxins - Final, Complete Assessment/Plan Assessment/Plan Assess & Plan/Chief Complaint left below the knee amputation. Diabetes. Hypertension. COPD. Former smoker. Sepsis. Patient on IV antibiotics. . 12/26/16. New-onset diarrhea. Left below the knee amputation. Diabetes. Hypertension. COPD. Sepsis. To check for C. difficile. . 12/27/16. Left below the knee amputation. Diabetes. Hypertension. COPD. C. difficile negative. Diarrhea no more. . 12/30/16 left below the knee amputation. Diabetes. Hypertension. COPD. Patient has Gaulding in groin area.. Patient feeling better Clinical Quality Measures DVT/VTE Risk/Contraindication: Risk Factor Score Per Nursin RFS Level Per Nursing on Admit: 4+=Very High RAYMOND SHELLEY DO Dec 30, 2016 08:33
[2016-12-30] MEDS ORDERED: NYSTATIN CREAM (MYCOSTATIN) 30 GM TUBE TP PRN (09:15)
--- NOTE | 2016-12-30 10:46 | Occupational Ther Daily Note ---
OT Current Status-Daily Note Subjective Pt seen in room, up in bed, agreeable to OT. Reported she had a good weekend but has trouble going to sleep. No pain mentioned. Appearance Alert, cooperative Mental Status/Objective Functional [place] Measure 0=Not Assessed/NA 4=Minimal Assistance 1=Total Assistance 5=Supervision or Setup 2=Maximal Assistance 6=Modified [place] 3=Moderate Assistance 7=Complete [place] Attachments: IV ADL-Treatment ADLs took longer than usual due to preparations of residual limb for bathing Functional [place] Measure 0=Not Assessed/NA 4=Minimal Assistance 1=Total Assistance 5=Supervision or Setup 2=Maximal Assistance 6=Modified [place] 3=Moderate Assistance 7=Complete IndependenceIRFPAI Quality Coding Scale 6 Independent with activity with or without an assistive device 5 Patient requires set up or clean up by helper. Patient completes activity by themselves 4 Supervision or touching assist (CGA). [place] provide cues , steadying assist 3 The helper provides less than half the effort to complete the activity 2 The helper provides more than half the effort to complete the activity 1 Dependent. The helper does all the effort to complete an activity 7 Patient refused to complete or attempt activity 9 The patient did not perform the activity before the current illness or injury 88 Not attempted due to Medical conditions or safety concerns Eating (FIM): 6 (Mod I) Grooming (FIM): 6 (Mod I w/c level, at sink) Bathing (FIM): 5 (Washed and dried all parts except back, setup. Shower bench, grab bars, hand held shower) Upper Body (FIM): 5 (Setup) Lower Body Dressing (FIM): 4 (Doffed and donned clothing, CGA when standing to pull pants up. FWW) Transfers (B, C, W/C) (FIM): 5 (SBA, FWW) Shower Transfer(FIM): 5 (SBA, FWW. Grab bars, shower bench) Pt reported all the modifications have been made at her house and she is "ready " to go home! Bathroom door 36", toilet height 17.5" Other Treatment Pt propelled herself to gym, needing assistance managing IV pole. Pt did 16 minutes bilat UE exercise with arm bike set at 15W resistance (increased time). Exercise to strengthen arms for standing for ADLs, for example pulling pants up. Pt returned to room, left up in w/c per her request,all needs met. OT Short Term Goals Short Term Goals Time Frame: Dec 31, 2016 Bathing(FIM): 5 Upper Body Dressing(FIM): 5 Lower Body Dressing(FIM): 5 Toileting(FIM): 5 Transfers (B,C,W/C) (FIM): 4 (CGA) Toilet/Commode Transfer(FIM): 5 Additional Short Term Goals: 2-Verbalize Understanding, 3-ImproveStrength/Anatoly 1=Demonstrate adherence to instructed precautions during ADL tasks. 2=Patient will verbalize/demonstrate understanding of assistive devices/ modifications for ADL. 3=Patient will improve strength/tolerance for activity to enable patient to perform ADL's. OT [facility] Goals Senior Project Coordinator Goals Time Frame: Jan 14, 2017 Eating (FIM): 6 Eating (QC): 6 Groomin Oral Hygiene (QC): 6 Bathing(FIM): 6 Shower/Bathe Self (QC): 6 Upper Body Dressing(FIM): 6 Upper Body Dressing (QC): 6 Lower Body Dressing(FIM): 6 Lower Body Dressing (QC): 6 On/Off Footwear (QC): 6 Toileting(FIM): 6 Toileting Hygiene (QC): 6 Toilet/Commode Transfer(FIM): 6 Toilet/Commode Transfer (QC): 6 Shower Transfer(FIM): 6 Increase bilat UE strength to 5/5 as needed for functional mobility and ADLs Additional Goals: 2-Verbalize Understanding, 3-ImproveStrength/Anaotly 1=Demonstrate adherence to instructed precautions during ADL tasks. 2=Patient will verbalize/demonstrate understanding of assistive devices/ modifications for ADL. 3=Patient will improve strength/tolerance for activity to enable patient to perform ADL's. OT Education/Plan Problem List/Assessment Pt would benefit from skilled OT to increase her independence in basic self care to allow her to return home safely to live with and family after L BKA. Discharge Recommendations Plan/Recommendations: Continue POC Treatment Plan/Plan of Care Patient would benefit from OT for education, treatment and training to promote independence in ADL's, mobility, safety and/or upper extremity function for ADL' s. Plan of Care: ADL Retraining, Functional Mobility, Group Exercise/Act as Ind ( education, exercise, activity tolerance, socialization, funct activities), UE Funct Exercise/Act, UE Neuromus Re-Ed/Coord Treatment Duration: Jan 14, 2017 Visits Per Week: 10-11 Minutes/Day (M-F): 75-90 Minutes/Day (Sat/[place]): PRN Agreement: Yes Rehab Potential: Fair Time/GCodes Start Time: 08:30 Stop Time: 10:00 Total Time Billed (hr/min): 90 Billed Treatment Time visit, ADL 65 minutes, exercise 25 minutes MAURA SARKAR OT Dec 30, 2016 10:46
--- NOTE | 2016-12-30 11:56 | Physical Therapy Daily Note ---
PT Daily Note-Current Subjective Patient sleeping in bed pre tx, agrees reluctantly to PT after waking. She is very tired and states she is having a hard time sleeping here. She states she has pain of 3-4/10 in her residual limb. Appearance Patient in bed post tx with nurse call, phone, tray, all needs met. Nursing in the room. Mental Status Patient Orientation: Normal For Age Transfers Functional [place] Measure 0=Not Assessed/NA 4=Minimal Assistance 1=Total Assistance 5=Supervision or Setup 2=Maximal Assistance 6=Modified [place] 3=Moderate Assistance 7=Complete IndependenceIRFPAI Quality Coding Scale 6 Independent with activity with or without an assistive device 5 Patient requires set up or clean up by helper. Patient completes activity by themselves 4 Supervision or touching assist (CGA). [place] provide cues , steadying assist 3 The helper provides less than half the effort to complete the activity 2 The helper provides more than half the effort to complete the activity 1 Dependent. The helper does all the effort to complete an activity 7 Patient refused to complete or attempt activity 9 The patient did not perform the activity before the current illness or injury 88 Not attempted due to Medical conditions or safety concerns Transfers (B, C, W/C) (FIM): 5 Scootin Rollin Supine to/from Sit: 6 Sit to/from Stand: 5 Bed to/from Chair: 5 good balance, patient uses handholds appropriately Gait Training Gait (FIM): 1 Distance: 20'x4 Gait Level of Assist: 4 Gait Persons Needed: 1 Gait Assistive Device: FWW CGA, no LOB Wheelchair Training Wheelchair (FIM): 6 Distance: 150'x2 Type of Wheelchair: Manual Exercises Supine Ex: Quad Set Supine Reps: 20 prone hip flexor stretch 5 min NuStep Minutes: 15 NuStep Workload: 5 Treatments ambulation, bed mobility and transfer training, functional strengthening, ROM Assessment Current Status: Fair Progress improving endurance, patient has been able to maintain full left knee extension PT Short Term Goals Short Term Goals Time Frame: Dec 31, 2016 Transfers (B,C,W/C) (FIM): 4 (CGA) Gait (FIM): 2 Gait Distance Comment: 50' Gait Level of Assist: 4 (CGA) Gait Assistive Device: FWW Wheelchair Distance: 100' PT Review Nurse Goals Review Nurse Goals PT [facility] Goals Time Frame: Jan 14, 2017 Transfers (B,C,W/C) (FIM): 5 Sit to Lying (QC): 6 Lying-Sitting on Side/Bed(QC): 6 Sit to Stand (QC): 4 Rollin Roll Left to Right (QC): 6 Chair/Sym-bb-Samsv Xfer(QC): 4 Car Transfer (QC): 4 Does the Patient Walk: Yes Gait (FIM): 5 Distance: 150' Walk 10 feet (QC): 4 Walk 10ft-Uneven Surface(QC): 4 Walk 50ft with 2 Turns (QC): 4 Walk 150 ft (QC): 4 Gait Level of Assist: 5 Gait Assistive Device: FWW Stairs (FIM): 2 # of Steps: 4 1 Step (curb) (QC): 4 4 Steps (QC): 4 12 Steps (QC): 88 Stairs Level Of Assist: 4 Picking up an Object (QC): 88 PT Plan Problem List Problem List: Activity Tolerance, Functional Strength, Safety, Balance, Gait, Transfer, Bed Mobility, ROM Treatment/Plan Treatment Plan: Continue Plan of Care Treatment Plan: Bed Mobility, Education, Functional Activity Anatoly, Functional Strength, Group Therapy, Gait, Safety, Therapeutic Exercise, Transfers Treatment Duration: Jan 14, 2017 Visits Per Week: 10-11 Minutes/Day (M-F): 60-90 Minutes/Day (Sat/[place]): 15-30 Safety Risks/Education Patient Education: Gait Training, Transfer Techniques, Correct Positioning, Safety Issues Teaching Recipient: Patient Teaching Methods: Demonstration, Discussion Response to Teaching: Reinforcement Needed Time/GCodes Time In: 1100 Time Out: 1200 Total Billed Treatment Time: 60 Total Billed Treatment 1 visit EX 30 min GT 30 min DESIRE SORIA PT Dec 30, 2016 11:56
[2016-12-30 12:05] LABS: BASOPHILS # (AUTO) 0.1 10^3/uL (0.0-0.1); BASOPHILS % (AUTO) 1 % (0-10); EOSINOPHILS # (AUTO) 0.2 10^3/uL (0.0-0.3); EOSINOPHILS % (AUTO) 3 % (0-10); LYMPHOCYTES # (AUTO) 1.6 X 10^3 (1.0-4.0); LYMPHOCYTES % (AUTO) 23 % (12-44); MEAN CORPUSCULAR HEMOGLOBIN 30 PG (25-34); MEAN CORPUSCULAR HGB CONC 34 G/DL (32-36); MEAN CORPUSCULAR VOLUME 88 FL (80-99); MEAN PLATELET VOLUME 8.1 FL (7.4-10.4); MONOCYTES # (AUTO) 0.5 X 10^3 (0.0-1.0); MONOCYTES % (AUTO) 8 % (0-12); NEUTROPHILS # (AUTO) 4.6 X 10^3 (1.8-7.8); NEUTROPHILS % (AUTO) 66 % (42-75); PLATELET COUNT 594 10^3/uL (130-400); RED BLOOD COUNT 3.42 10^6/uL (4.35-5.85); RED CELL DISTRIBUTION WIDTH 14.3 % (10.0-14.5); WHITE BLOOD COUNT 7.1 10^3/uL (4.3-11.0)
[2016-12-30 12:28] LABS: ALANINE AMINOTRANSFERASE 15 U/L (0-55); ALBUMIN 2.9 G/DL (3.2-4.5); ANION GAP 11 MMOL/L (5-14); ASPARTATE AMINO TRANSFERASE 26 U/L (5-34); BILIRUBIN,TOTAL 0.2 MG/DL (0.1-1.0); BLOOD UREA NITROGEN 11 MG/DL (7-18); BUN/CREATININE RATIO 14; CALCIUM 8.7 MG/DL (8.5-10.1); CARBON DIOXIDE 24 MMOL/L (21-32); CHLORIDE 104 MMOL/L (98-107); CREATININE SERUM 0.78 MG/DL (0.60-1.30); GFR ESTIMATED > 60; GLUCOSE 106 MG/DL (70-105); POTASSIUM 3.7 MMOL/L (3.6-5.0); SODIUM 139 MMOL/L (135-145); TOTAL PROTEIN 7.4 G/DL (6.4-8.2)
[2016-12-30 12:29] LABS: BAND NEUTROPHILS 0 %; EOSINOPHILS % (MANUAL) 6 %; LYMPHOCYTES % (MANUAL) 20 %; NEUTROPHILS % (MANUAL) 63 %
[2016-12-30] MEDS ORDERED: [UNRECOGNIZED DRUG - CODE] IV (13:05)
[2016-12-30] MEDS ORDERED: HYDR170P TP (13:05)
[2016-12-30] MEDS ORDERED: ALPR2TAB6 PO (13:05)
[2016-12-30] MEDS ORDERED: AMLO5TAB2 PO (13:05)
[2016-12-30] MEDS ORDERED: CYCL10TA9 PO (13:05)
[2016-12-30] MEDS ORDERED: LISI10TA2 PO (13:05)
[2016-12-30] MEDS ORDERED: METF-479 PO (13:05)
[2016-12-30] MEDS ORDERED: INSA70301U SQ (13:05)
[2016-12-30] MEDS ORDERED: LACT1CAP39 PO (13:05)
[2016-12-30] MEDS ORDERED: MICA100V IV (13:05)
[2016-12-30] MEDS ORDERED: GABA-486 PO (13:05)
--- NOTE | 2016-12-30 14:33 | Physical Therapy Daily Note ---
PT Daily Note-Current Subjective Patient in bed sleeping pre tx, reluctantly agrees to PT upon waking. Pain of 7 /10 in residual limb. Appearance Patient BTB post tx with nurse call,phone, tray, all needs met. Mental Status Patient Orientation: Normal For Age Transfers Functional [place] Measure 0=Not Assessed/NA 4=Minimal Assistance 1=Total Assistance 5=Supervision or Setup 2=Maximal Assistance 6=Modified [place] 3=Moderate Assistance 7=Complete IndependenceIRFPAI Quality Coding Scale 6 Independent with activity with or without an assistive device 5 Patient requires set up or clean up by helper. Patient completes activity by themselves 4 Supervision or touching assist (CGA). [place] provide cues , steadying assist 3 The helper provides less than half the effort to complete the activity 2 The helper provides more than half the effort to complete the activity 1 Dependent. The helper does all the effort to complete an activity 7 Patient refused to complete or attempt activity 9 The patient did not perform the activity before the current illness or injury 88 Not attempted due to Medical conditions or safety concerns Transfers (B, C, W/C) (FIM): 5 Scootin Rollin Supine to/from Sit: 6 Sit to/from Stand: 5 Bed to/from Chair: 5 occasional cues for hand placement Gait Training Gait (FIM): 1 Distance: 25'x5 Gait Level of Assist: 4 (CGA) Gait Persons Needed: 1 Gait Assistive Device: FWW Treatments bed mobility and transfers, ambulation, patient was toileted once on bedside commode Assessment Current Status: Fair Progress improving endurance PT Short Term Goals Short Term Goals Time Frame: Dec 31, 2016 Transfers (B,C,W/C) (FIM): 4 (CGA) Gait (FIM): 2 Gait Distance Comment: 50' Gait Level of Assist: 4 (CGA) Gait Assistive Device: FWW Wheelchair Distance: 150'x2 PT [facility] Goals Neurodiagnostic Technician Goals PT [facility] Goals Time Frame: Jan 14, 2017 Transfers (B,C,W/C) (FIM): 5 Sit to Lying (QC): 6 Lying-Sitting on Side/Bed(QC): 6 Sit to Stand (QC): 4 Rollin Roll Left to Right (QC): 6 Chair/Tao-sn-Zsywi Xfer(QC): 4 Car Transfer (QC): 4 Does the Patient Walk: Yes Gait (FIM): 5 Distance: 150' Walk 10 feet (QC): 4 Walk 10ft-Uneven Surface(QC): 4 Walk 50ft with 2 Turns (QC): 4 Walk 150 ft (QC): 4 Gait Level of Assist: 5 Gait Assistive Device: FWW Stairs (FIM): 2 # of Steps: 4 1 Step (curb) (QC): 4 4 Steps (QC): 4 12 Steps (QC): 88 Stairs Level Of Assist: 4 Picking up an Object (QC): 88 PT Plan Problem List Problem List: Activity Tolerance, Functional Strength, Safety, Balance, Gait, Transfer, ROM Treatment/Plan Treatment Plan: Continue Plan of Care Treatment Plan: Bed Mobility, Education, Functional Activity Anatoly, Functional Strength, Group Therapy, Gait, Safety, Therapeutic Exercise, Transfers Treatment Duration: Jan 14, 2017 Visits Per Week: 10-11 Minutes/Day (M-F): 60-90 Minutes/Day (Sat/[place]): 15-30 Safety Risks/Education Patient Education: Gait Training, Transfer Techniques, Safety Issues Teaching Recipient: Patient Teaching Methods: Demonstration, Discussion Response to Teaching: Reinforcement Needed Time/GCodes Time In: 1400 Time Out: 1430 Total Billed Treatment Time: 30 Total Billed Treatment 1 visit GT 30 min DESIRE SORIA PT Dec 30, 2016 14:33
[2016-12-30 18:19] VITALS: BP 133/87
[2016-12-30] MEDS: inSUlin DETERMIR 1 UNIT/0.01 ML (LEVEMIR) CHARGE PER UNIT SQ SCH (20:15)
--- NOTE | 2016-12-30 23:12 | Wound Care Progress Note ---
Subjective Subjective Subjective/Events-last exam 51 year old female with sacral pressure ulcer improving with present regimen.The patient notes less pain with the application of the barrier cream. PMFSH: No interval change. Review of Systems General: No Chills Pulmonary: No Dyspnea Cardiovascular: No: Chest Pain Objective Exam Last Set of Vital Signs Vital Signs Date Time Temp Pulse Resp B/P Pulse Ox O2 Delivery O2 Flow Rate FiO2 12/30/16 20:20 Room Air 12/30/16 18:19 98.3 94 16 133/87 99 Capillary Refill : I&O Intake and Output 12/30/16 00:00 Intake Total 2435 ml Balance 2435 ml Intake Oral 1435 ml IV Total 1000 ml # Voids 9 # Bowel Movements 1 General: Alert, No Acute Distress Lungs: Normal Air Movement Skin: Other (Sacral wound clean and non-inflamed.) Results Lab Laboratory Tests 12/30/16 05:36: Glucometer 74 12/30/16 10:59: Glucometer 111H 12/30/16 11:50: Alanine Aminotransferase (ALT/SGPT) 15, Albumin 2.9L, Alkaline Phosphatase 89, Anion Gap 11, Aspartate Amino Transf (AST/SGOT) 26, BUN/Creatinine Ratio 14, Band Neutrophils 0, Basophils # (Auto) 0.1, Basophils (%) (Auto) 1, Blood Morphology Comment NORMAL, Blood Urea Nitrogen 11, Calcium Level 8.7, Carbon Dioxide Level 24, Chloride Level 104, Creatinine 0.78, Eosinophils # (Auto) 0.2 , Eosinophils % (Manual) 6, Eosinophils (%) (Auto) 3, Estimat Glomerular Filtration Rate > 60, Glucose Level 106H, Hematocrit 30L, Hemoglobin 10.1L, Lymphocytes # (Auto) 1.6, Lymphocytes % (Manual) 20, Lymphocytes (%) (Auto) 23, Mean Corpuscular Hemoglobin 30, Mean Corpuscular Hemoglobin Concent 34, Mean Corpuscular Volume 88, Mean Platelet Volume 8.1, Monocytes # (Auto) 0.5, Monocytes % (Manual) 11, Monocytes (%) (Auto) 8, Neutrophils # (Auto) 4.6, Neutrophils % (Manual) 63, Neutrophils (%) (Auto) 66, Platelet Count 594H, Potassium Level 3.7, Red Blood Count 3.42L, Red Cell Distribution Width 14.3, Sodium Level 139, Total Bilirubin 0.2, Total Protein 7.4, White Blood Count 7.1 12/30/16 16:13: Glucometer 148H 12/30/16 20:11: Glucometer 184H Microbiology 12/26/16 C. difficile [facility] Antigen & Toxins - Final, Complete Assessment/Plan Assessment/Plan Assessment/Plan 1. Healing Unstageable pressure ulcer of sacrum. Plan: continue present regimen. KRISTIE VALLADARES MD Dec 30, 2016 23:12
[2016-12-30] MEDS: CATHETER FLUSH 10 ML SYR IV PRN (23:25)
[2016-12-31 05:02] VITALS: BP 162/80
[2016-12-31] MEDS: inSUlin ASPART (NovoLOG) 1 UNIT/0.01 ML (CHARGE PER UNIT) SC SCH ×4 (06:00→20:31)
[2016-12-31] MEDS: PIPERACILLIN/TAZOBACTAM 4.5 GM/NS 100 ML IVPB IV SCH ×6 (06:26→23:49)
[2016-12-31] MEDS: CATHETER FLUSH 10 ML SYR IV PRN ×3 (06:26→23:50)
[2016-12-31] MEDS: metFORMIN XR 500 MG (GLUCOPHAGE XR) TAB PO SCH ×2 (06:27→17:44)
[2016-12-31] MEDS: LACTOBACILLUS Acidoph/Bulgar (LACTINEX/FLORANEX) TAB PO SCH ×3 (06:27→17:41)
--- NOTE | 2016-12-31 07:54 | Progress Note (SOAP) ---
Subjective Subjective/Events-last exam amputee. Sacral ulcer. Patient improving and feeling better Objective Exam Vital Signs Date Time Temp Pulse Resp B/P Pulse Ox O2 Delivery O2 Flow Rate FiO2 12/31/16 05:02 98.1 94 20 162/80 98 Room Air 12/30/16 20:20 Room Air 12/30/16 18:19 98.3 94 16 133/87 99 12/30/16 09:00 Room Air I & O 12/31/16 07:00 Intake Total 1900 ml Balance 1900 ml Capillary Refill : General Appearance: No Apparent Distress WD/WN Results Lab Laboratory Tests 12/30/16 11:50 Laboratory Tests 12/30/16 10:59: Glucometer 111H 12/30/16 11:50: Alanine Aminotransferase (ALT/SGPT) 15, Albumin 2.9L, Alkaline Phosphatase 89, Anion Gap 11, Aspartate Amino Transf (AST/SGOT) 26, BUN/Creatinine Ratio 14, Band Neutrophils 0, Basophils # (Auto) 0.1, Basophils (%) (Auto) 1, Blood Morphology Comment NORMAL, Blood Urea Nitrogen 11, Calcium Level 8.7, Carbon Dioxide Level 24, Chloride Level 104, Creatinine 0.78, Eosinophils # (Auto) 0.2 , Eosinophils % (Manual) 6, Eosinophils (%) (Auto) 3, Estimat Glomerular Filtration Rate > 60, Glucose Level 106H, Hematocrit 30L, Hemoglobin 10.1L, Lymphocytes # (Auto) 1.6, Lymphocytes % (Manual) 20, Lymphocytes (%) (Auto) 23, Mean Corpuscular Hemoglobin 30, Mean Corpuscular Hemoglobin Concent 34, Mean Corpuscular Volume 88, Mean Platelet Volume 8.1, Monocytes # (Auto) 0.5, Monocytes % (Manual) 11, Monocytes (%) (Auto) 8, Neutrophils # (Auto) 4.6, Neutrophils % (Manual) 63, Neutrophils (%) (Auto) 66, Platelet Count 594H, Potassium Level 3.7, Red Blood Count 3.42L, Red Cell Distribution Width 14.3, Sodium Level 139, Total Bilirubin 0.2, Total Protein 7.4, White Blood Count 7.1 12/30/16 16:13: Glucometer 148H 12/30/16 20:11: Glucometer 184H 12/31/16 06:29: Glucometer 113H Microbiology 12/26/16 C. difficile [facility] Antigen & Toxins - Final, Complete Assessment/Plan Assessment/Plan Assess & Plan/Chief Complaint left below the knee amputation. Diabetes. Hypertension. COPD. Former smoker. Sepsis. Patient on IV antibiotics. . 12/26/16. New-onset diarrhea. Left below the knee amputation. Diabetes. Hypertension. COPD. Sepsis. To check for C. difficile. . 12/27/16. Left below the knee amputation. Diabetes. Hypertension. COPD. C. difficile negative. Diarrhea no more. . 12/30/16 left below the knee amputation. Diabetes. Hypertension. COPD. Patient has [place] in groin area.. Patient feeling better. . 12/31/16. Left below the knee amputation. Diabetes. Hypertension. COPD. Sepsis. Patient seems happy and improving. Patient feel she is doing much better Clinical Quality Measures DVT/VTE Risk/Contraindication: Risk Factor Score Per Nursin RFS Level Per Nursing on Admit: 4+=Very High RAYMOND SHELLEY DO Dec 31, 2016 07:54
[2016-12-31] MEDS: lisINopril 10 MG (PRINIVIL) TAB PO SCH (08:16)
[2016-12-31] MEDS: GABAPENTIN 100 MG (NEURONTIN) CAP PO SCH ×3 (08:16→20:30)
[2016-12-31] MEDS: amLODIPine 5 MG (NORVASC) TAB PO SCH (08:17)
[2016-12-31] MEDS: ZINC OXIDE 16% OINT (BUTT PASTE) 113 GM TUBE TOP SCH ×2 (08:18→20:30)
--- NOTE | 2016-12-31 09:00 | Physical Therapy Daily Note ---
PT Daily Note-Current Subjective Patient in bed pre tx, agrees to PT, pleasant and cooperative. Pain Numeric Pain Scale: 0-No Pain Appearance Patient in wheelchair at bedside post tx with nurse call, phone, tray, all needs met. Mental Status Patient Orientation: Normal For Age Attachments: IV Transfers Functional [place] Measure 0=Not Assessed/NA 4=Minimal Assistance 1=Total Assistance 5=Supervision or Setup 2=Maximal Assistance 6=Modified [place] 3=Moderate Assistance 7=Complete IndependenceIRFPAI Quality Coding Scale 6 Independent with activity with or without an assistive device 5 Patient requires set up or clean up by helper. Patient completes activity by themselves 4 Supervision or touching assist (CGA). [place] provide cues , steadying assist 3 The helper provides less than half the effort to complete the activity 2 The helper provides more than half the effort to complete the activity 1 Dependent. The helper does all the effort to complete an activity 7 Patient refused to complete or attempt activity 9 The patient did not perform the activity before the current illness or injury 88 Not attempted due to Medical conditions or safety concerns Transfers (B, C, W/C) (FIM): 5 Scootin Rollin Supine to/from Sit: 6 Sit to/from Stand: 5 Bed to/from Chair: 5 Gait Training Gait (FIM): 2 Distance: 50'x3 Gait Level of Assist: 4 Gait Persons Needed: 1 Gait Assistive Device: FWW [facility] Wheelchair Training Wheelchair (FIM): 6 Distance: 150'x2 Type of Wheelchair: Manual Exercises Standing: Hamstring curls, Heel/toe raises, 3 way Ex=Flex, Abd, Ext, Mini squats LAQ alternating 5 min Treatments wheelchair mobility, ambulation, functional strengthening Assessment Current Status: Fair Progress improving strength and endurance PT Short Term Goals Short Term Goals Time Frame: Dec 31, 2016 Transfers (B,C,W/C) (FIM): 4 (CGA) Gait (FIM): 2 Gait Distance Comment: 50' Gait Level of Assist: 4 ([facility]) Gait Assistive Device: FWW Wheelchair Distance: 150'x2 PT [place] Teacher Goals [place] Teacher Goals PT Correction Goals Time Frame: Jan 14, 2017 Transfers (B,C,W/C) (FIM): 5 Sit to Lying (QC): 6 Lying-Sitting on Side/Bed(QC): 6 Sit to Stand (QC): 4 Rollin Roll Left to Right (QC): 6 Chair/Xyj-gl-Zwyrd Xfer(QC): 4 Car Transfer (QC): 4 Does the Patient Walk: Yes Gait (FIM): 5 Distance: 150' Walk 10 feet (QC): 4 Walk 10ft-Uneven Surface(QC): 4 Walk 50ft with 2 Turns (QC): 4 Walk 150 ft (QC): 4 Gait Level of Assist: 5 Gait Assistive Device: FWW Stairs (FIM): 2 # of Steps: 4 1 Step (curb) (QC): 4 4 Steps (QC): 4 12 Steps (QC): 88 Stairs Level Of Assist: 4 Picking up an Object (QC): 88 PT Plan Problem List Problem List: Activity Tolerance, Functional Strength, Safety, Balance, Gait, Transfer, ROM Treatment/Plan Treatment Plan: Continue Plan of Care Treatment Plan: Bed Mobility, Education, Functional Activity Anatoly, Functional Strength, Group Therapy, Gait, Safety, Therapeutic Exercise, Transfers Treatment Duration: Jan 14, 2017 Visits Per Week: 10-11 Minutes/Day (M-F): 60-90 Minutes/Day (Sat/[place]): 15-30 Safety Risks/Education Patient Education: Gait Training, Transfer Techniques, Correct Positioning, W/ C Management, Safety Issues Teaching Recipient: Patient Teaching Methods: Demonstration, Discussion Response to Teaching: Reinforcement Needed Time/GCodes Time In: 800 Time Out: 900 Total Billed Treatment Time: 60 Total Billed Treatment 1 visit [facility] 10 min GT 30 min EX 20 min DESIRE SORIA PT Dec 31, 2016 09:00
[2016-12-31] MEDS: HYDROcodone/APAP 10 MG/325 MG (LORTAB) TAB PO PRN ×2 (13:27→17:41)
--- NOTE | 2016-12-31 13:37 | PM & R (SOAP) Progress Note ---
Subjective Subjective/Events-last exam Patient was seen in her room this AM Progressing well with therapies Patient SBA for transfers Discussed case with Dr Smith yesterday Pressure sore healing well Appreciate his note Appreciate DR Vigil notes and orders Objective Exam Last Set of Vital Signs Vital Signs Date Time Temp Pulse Resp B/P Pulse Ox O2 Delivery O2 Flow Rate FiO2 12/31/16 09:00 Room Air 12/31/16 05:02 98.1 94 20 162/80 98 Capillary Refill : I&O Intake and Output 12/31/16 00:00 Intake Total 2000 ml Balance 2000 ml Intake Oral 1800 ml IV Total 200 ml # Voids 6 # Bowel Movements 1 General: Alert, Oriented X3, Cooperative, No Acute Distress HEENT: Atraumatic, PERRLA, EOMI, Mucous Memb Moist/[employer] Neck: Supple, No JVD Lungs: Clear to Auscultation Heart: Regular Rate Abdomen: Normal Bowel Sounds, Soft, No Tenderness Extremities: Other (Left BKA wrapped) Neuro: Other (sensation deminished to touch rt foot Generalized weakness) Results Lab Laboratory Tests 12/28/16 16:08: Glucometer 130H 12/28/16 20:37: Glucometer 179H 12/29/16 05:13: Glucometer 107 12/29/16 12:46: Glucometer 113H 12/29/16 16:47: Glucometer 139H 12/29/16 20:26: Glucometer 155H 12/30/16 05:36: Glucometer 74 12/30/16 10:59: Glucometer 111H 12/30/16 11:50: Alanine Aminotransferase (ALT/SGPT) 15, Albumin 2.9L, Alkaline Phosphatase 89, Anion Gap 11, Aspartate Amino Transf (AST/SGOT) 26, BUN/Creatinine Ratio 14, Band Neutrophils 0, Basophils # (Auto) 0.1, Basophils (%) (Auto) 1, Blood Morphology Comment NORMAL, Blood Urea Nitrogen 11, Calcium Level 8.7, Carbon Dioxide Level 24, Chloride Level 104, Creatinine 0.78, Eosinophils # (Auto) 0.2 , Eosinophils % (Manual) 6, Eosinophils (%) (Auto) 3, Estimat Glomerular Filtration Rate > 60, Glucose Level 106H, Hematocrit 30L, Hemoglobin 10.1L, Lymphocytes # (Auto) 1.6, Lymphocytes % (Manual) 20, Lymphocytes (%) (Auto) 23, Mean Corpuscular Hemoglobin 30, Mean Corpuscular Hemoglobin Concent 34, Mean Corpuscular Volume 88, Mean Platelet Volume 8.1, Monocytes # (Auto) 0.5, Monocytes % (Manual) 11, Monocytes (%) (Auto) 8, Neutrophils # (Auto) 4.6, Neutrophils % (Manual) 63, Neutrophils (%) (Auto) 66, Platelet Count 594H, Potassium Level 3.7, Red Blood Count 3.42L, Red Cell Distribution Width 14.3, Sodium Level 139, Total Bilirubin 0.2, Total Protein 7.4, White Blood Count 7.1 12/30/16 16:13: Glucometer 148H 12/30/16 20:11: Glucometer 184H 12/31/16 06:29: Glucometer 113H Microbiology 12/26/16 C. difficile [facility] Antigen & Toxins - Final, Complete Assessment/Plan Assessment S/P LBKA DM Controlled Pressure sore-healing well COPD Postop anemia Plan Continue PT/OT/Wound care Appreciate Dr vigil note and orders as well as DR Ann. Monitor Accuchecks and adjuste meds as needed Team Conference tomorrow 01/01/17 WANG ADAMS MD Dec 31, 2016 13:37
--- NOTE | 2016-12-31 14:34 | Therapy Group Daily Note ---
Therapy Daily Group Note Exercises LE Seated Exercise, UE Exercise Other/Notes Pt was an active participant in OT/PT group. She introduced herself to the group by sharing a place she'd like to visit or a favorite place she has visited. She participated in a memory activity and was able to recall items several minutes after viewing them. She did seated UE and LE exercises and stretches and shared "Words of [place] or Encouragement" with the rest of the group. She took herself back to her room per w/c. Start Time: 13:00 Stop Time: 14:10 Total Billed Treatment Time: 70 Total Billed Treatment visit, 70 minutes MAURA SARKAR OT Dec 31, 2016 14:34
--- NOTE | 2016-12-31 15:08 | Occupational Ther Daily Note ---
OT Current Status-Daily Note Subjective Pt seen in room, up in w/c, agreeable to OT. No pain mentioned. Pt declined ADLs today Appearance Alert, cooperative Mental Status/Objective Functional [place] Measure 0=Not Assessed/NA 4=Minimal Assistance 1=Total Assistance 5=Supervision or Setup 2=Maximal Assistance 6=Modified [place] 3=Moderate Assistance 7=Complete [place] ADL-Treatment Functional [place] Measure 0=Not Assessed/NA 4=Minimal Assistance 1=Total Assistance 5=Supervision or Setup 2=Maximal Assistance 6=Modified [place] 3=Moderate Assistance 7=Complete IndependenceIRFPAI Quality Coding Scale 6 Independent with activity with or without an assistive device 5 Patient requires set up or clean up by helper. Patient completes activity by themselves 4 Supervision or touching assist (CGA). [place] provide cues , steadying assist 3 The helper provides less than half the effort to complete the activity 2 The helper provides more than half the effort to complete the activity 1 Dependent. The helper does all the effort to complete an activity 7 Patient refused to complete or attempt activity 9 The patient did not perform the activity before the current illness or injury 88 Not attempted due to Medical conditions or safety concerns Other Treatment Pt propelled herself to gym, per w/c. She did 16 minutes bilat UE exercise on arm bike set at 16W resistance. She also did arc activity x several reps at different height, graded clothespins and nuts and bolts board, all with 1# weight on each arm. Exercises are designed to help increase arm strength as needed for transfers and standing during ADLs. Pt returned to room, left up in w /c (has cushion), all needs met. Education OT Patient Education: Exercise program, Progress toward Goal/Update tx plan, Purpose of tx/functional activities Teaching Recipient: Patient Teaching Methods: Discussion Response to Teaching: Return Demonstration OT Short Term Goals Short Term Goals Time Frame: Dec 31, 2016 Bathing(FIM): 5 Upper Body Dressing(FIM): 5 Lower Body Dressing(FIM): 5 Toileting(FIM): 5 Transfers (B,C,W/C) (FIM): 4 (CGA) Toilet/Commode Transfer(FIM): 5 Additional Short Term Goals: 2-Verbalize Understanding, 3-ImproveStrength/Anatoly 1=Demonstrate adherence to instructed precautions during ADL tasks. 2=Patient will verbalize/demonstrate understanding of assistive devices/ modifications for ADL. 3=Patient will improve strength/tolerance for activity to enable patient to perform ADL's. OT Senior Care Goals Senior Care Goals Time Frame: Jan 14, 2017 Eating (FIM): 6 Eating (QC): 6 Groomin Oral Hygiene (QC): 6 Bathing(FIM): 6 Shower/Bathe Self (QC): 6 Upper Body Dressing(FIM): 6 Upper Body Dressing (QC): 6 Lower Body Dressing(FIM): 6 Lower Body Dressing (QC): 6 On/Off Footwear (QC): 6 Toileting(FIM): 6 Toileting Hygiene (QC): 6 Toilet/Commode Transfer(FIM): 6 Toilet/Commode Transfer (QC): 6 Shower Transfer(FIM): 6 Increase bilat UE strength to 5/5 as needed for functional mobility and ADLs Additional Goals: 2-Verbalize Understanding, 3-ImproveStrength/Anatoly 1=Demonstrate adherence to instructed precautions during ADL tasks. 2=Patient will verbalize/demonstrate understanding of assistive devices/ modifications for ADL. 3=Patient will improve strength/tolerance for activity to enable patient to perform ADL's. OT Education/Plan Problem List/Assessment Pt would benefit from skilled OT to increase her independence in basic self care to allow her to return home safely to live with and family after L BKA. Discharge Recommendations Plan/Recommendations: Continue POC Treatment Plan/Plan of Care Patient would benefit from OT for education, treatment and training to promote independence in ADL's, mobility, safety and/or upper extremity function for ADL' s. Plan of Care: ADL Retraining, Functional Mobility, Group Exercise/Act as Ind ( education, exercise, activity tolerance, socialization, funct activities), UE Funct Exercise/Act, UE Neuromus Re-Ed/Coord Treatment Duration: Jan 14, 2017 Visits Per Week: 10-11 Minutes/Day (M-F): 75-90 Minutes/Day (Sat/[place]): PRN Agreement: Yes Rehab Potential: Fair Time/GCodes Start Time: 09:45 Stop Time: 10:45 Total Time Billed (hr/min): 60 Billed Treatment Time visit, 60 minutes exercise MAURA SARKAR OT Dec 31, 2016 15:08
[2016-12-31 18:22] VITALS: BP 156/91
[2016-12-31] MEDS: inSUlin DETERMIR 1 UNIT/0.01 ML (LEVEMIR) CHARGE PER UNIT SQ SCH (20:30)
[2017-01-01 05:11] VITALS: BP 154/83
[2017-01-01] MEDS: inSUlin ASPART (NovoLOG) 1 UNIT/0.01 ML (CHARGE PER UNIT) SC SCH ×4 (05:44→20:13)
[2017-01-01] MEDS: CATHETER FLUSH 10 ML SYR IV PRN ×2 (06:01→22:56)
[2017-01-01] MEDS: PIPERACILLIN/TAZOBACTAM 4.5 GM/NS 100 ML IVPB IV SCH ×6 (06:01→22:56)
[2017-01-01] MEDS: LACTOBACILLUS Acidoph/Bulgar (LACTINEX/FLORANEX) TAB PO SCH ×3 (06:01→16:20)
[2017-01-01] MEDS: metFORMIN XR 500 MG (GLUCOPHAGE XR) TAB PO SCH ×2 (06:01→16:20)
[2017-01-01] MEDS: GABAPENTIN 100 MG (NEURONTIN) CAP PO SCH ×3 (08:14→20:12)
[2017-01-01] MEDS: amLODIPine 5 MG (NORVASC) TAB PO SCH (08:14)
[2017-01-01] MEDS: HYDROcodone/APAP 10 MG/325 MG (LORTAB) TAB PO PRN ×2 (08:14→22:55)
[2017-01-01] MEDS: lisINopril 10 MG (PRINIVIL) TAB PO SCH (08:14)
--- NOTE | 2017-01-01 08:33 | Physical Therapy Daily Note ---
PT Daily Note-Current Subjective Patient in bed sleeping pre tx, agrees to PT, patient very tired. No complaints of pain, she does say she has an upset stomach. Appearance Patient in bed post tx with nurse call, phone, tray, all needs met. Mental Status Patient Orientation: Normal For Age Attachments: IV Transfers Functional [place] Measure 0=Not Assessed/NA 4=Minimal Assistance 1=Total Assistance 5=Supervision or Setup 2=Maximal Assistance 6=Modified [place] 3=Moderate Assistance 7=Complete IndependenceIRFPAI Quality Coding Scale 6 Independent with activity with or without an assistive device 5 Patient requires set up or clean up by helper. Patient completes activity by themselves 4 Supervision or touching assist (CGA). [place] provide cues , steadying assist 3 The helper provides less than half the effort to complete the activity 2 The helper provides more than half the effort to complete the activity 1 Dependent. The helper does all the effort to complete an activity 7 Patient refused to complete or attempt activity 9 The patient did not perform the activity before the current illness or injury 88 Not attempted due to Medical conditions or safety concerns Transfers (B, C, W/C) (FIM): 5 Scootin Rollin Supine to/from Sit: 6 Sit to/from Stand: 5 Bed to/from Chair: 5 Wheelchair Training Wheelchair (FIM): 6 Distance: 150'x2 Type of Wheelchair: Manual Treatments Patient got up in bed and transferred to a wheelchair and wheeled to the gym. She then became nauseated and started dry heaving and having chills. We then went back to her room and got her back into bed. Doctor notified of patient condition. Assessment Current Status: Poor Progress Patient sick. PT Short Term Goals Short Term Goals Time Frame: Dec 31, 2016 Transfers (B,C,W/C) (FIM): 4 (CGA) Gait (FIM): 2 Gait Distance Comment: 50' Gait Level of Assist: 4 (CGA) Gait Assistive Device: FWW Wheelchair Distance: 150'x2 PT Custodial Goals Custodial Goals PT Creative Services Intern Goals Time Frame: Jan 14, 2017 Transfers (B,C,W/C) (FIM): 5 Sit to Lying (QC): 6 Lying-Sitting on Side/Bed(QC): 6 Sit to Stand (QC): 4 Rollin Roll Left to Right (QC): 6 Chair/Cel-qi-Lqudv Xfer(QC): 4 Car Transfer (QC): 4 Does the Patient Walk: Yes Gait (FIM): 5 Distance: 150' Walk 10 feet (QC): 4 Walk 10ft-Uneven Surface(QC): 4 Walk 50ft with 2 Turns (QC): 4 Walk 150 ft (QC): 4 Gait Level of Assist: 5 Gait Assistive Device: FWW Stairs (FIM): 2 # of Steps: 4 1 Step (curb) (QC): 4 4 Steps (QC): 4 12 Steps (QC): 88 Stairs Level Of Assist: 4 Picking up an Object (QC): 88 PT Plan Problem List Problem List: Activity Tolerance, Functional Strength, Safety, Balance, Gait, Transfer, Bed Mobility, ROM Treatment/Plan Treatment Plan: Continue Plan of Care Treatment Plan: Bed Mobility, Education, Functional Activity Anatoly, Functional Strength, Group Therapy, Gait, Safety, Therapeutic Exercise, Transfers Treatment Duration: Jan 14, 2017 Visits Per Week: 10-11 Minutes/Day (M-F): 60-90 Minutes/Day (Sat/[place]): 15-30 Safety Risks/Education Patient Education: Transfer Techniques, W/C Management, Safety Issues Teaching Recipient: Patient Teaching Methods: Demonstration, Discussion Response to Teaching: Reinforcement Needed Time/GCodes Time In: 800 Time Out: 820 Total Billed Treatment Time: 20 Total Billed Treatment [address] [facility] [place] 20 min DESIRE SORIA PT Jan 01, 2017 08:33
[2017-01-01] MEDS ORDERED: ONDANSETRON 4 MG (ZOFRAN) ORAL DISSOLVE TAB ONE (08:41)
[2017-01-01] MEDS: ZINC OXIDE 16% OINT (BUTT PASTE) 113 GM TUBE TOP SCH ×2 (08:45→20:14)
--- NOTE | 2017-01-01 08:46 | Progress Note (SOAP) ---
Subjective Subjective/Events-last exam patient vomiting this morning. Started recently. Patient given Zofran. Amputee. Objective Exam Vital Signs Date Time Temp Pulse Resp B/P Pulse Ox O2 Delivery O2 Flow Rate FiO2 01/01/17 05:11 98.9 95 16 154/83 96 Room Air 12/31/16 21:01 Room Air 12/31/16 18:22 98.4 104 16 156/91 98 12/31/16 09:00 Room Air I & O 01/01/17 07:00 Intake Total 1794 ml Balance 1794 ml Capillary Refill : General Appearance: No Apparent Distress WD/WN HEENT: Normal ENT Inspection Neck: Normal Inspection Respiratory: Chest Non Tender Lungs Clear Normal Breath Sounds No Accessory Muscle Use No Respiratory Distress Cardiovascular: Regular Rate, Rhythm No Murmur Gastrointestinal: non tender soft Results Lab Laboratory Tests 12/31/16 10:57: Glucometer 143H 12/31/16 15:54: Glucometer 141H 12/31/16 20:28: Glucometer 147H 01/01/17 05:35: Glucometer 95 Microbiology 12/26/16 C. difficile GDH Antigen & Toxins - Final, Complete Assessment/Plan Assessment/Plan Assess & Plan/Chief Complaint left below the knee amputation. Diabetes. Hypertension. COPD. Former smoker. Sepsis. Patient on IV antibiotics. . 12/26/16. New-onset diarrhea. Left below the knee amputation. Diabetes. Hypertension. COPD. Sepsis. To check for C. difficile. . 12/27/16. Left below the knee amputation. Diabetes. Hypertension. COPD. C. difficile negative. Diarrhea no more. . 12/30/16 left below the knee amputation. Diabetes. Hypertension. COPD. Patient has Gaulding in groin area.. Patient feeling better. . 12/31/16. Left below the knee amputation. Diabetes. Hypertension. COPD. Sepsis. Patient seems happy and improving. Patient feel she is doing much better. . 01/01/17 left below knee amputation. Diabetes. Hypertension. COPD. Sepsis. Patient vomiting this morning. Patient put on Zofran Clinical Quality Measures DVT/VTE Risk/Contraindication: Risk Factor Score Per Nursin RFS Level Per Nursing on Admit: 4+=Very High RAYMOND SHELLEY DO Jan 01, 2017 08:46
--- NOTE | 2017-01-01 10:26 | Occ Therapy Progress Note ---
Therapy Progress Note 1015 Pt seen in room, in bed. She reported that she is still nauseated and her stomach "really hurts". Pt said she would like to try to make it to therapy this afternoon but didn't believe that she would be able to do anything this morning due to nausea and vomiting. MAURA SARKAR OT Jan 01, 2017 10:26
--- NOTE | 2017-01-01 15:26 | Therapy Group Daily Note ---
Therapy Daily Group Note Patient Education Topic Other List Below (Word Association) Other/Notes Pt propels self in [facility] to PT/OT Group. Pt felt ill this morning so brought Sprite and bucket in case ill. Pt participates in Group consisting of Introductions (Name, Where You Live & Favorite Springtime Activity), Socialization, Word Association and Group Collaboration in Team Word Association activity. Pt actively participated in Word Association activity by finding correct associated word that most closely matches the Therapy or Everyday Item word. Pt worked on word finding. Pt returned to room to rest in bed at the end of tx with all needs met. Start Time: 13:00 Stop Time: 14:15 Total Billed Treatment Time: 75 Total Billed Treatment 1, GRP DAVE KANG ROW BOSS Jan 01, 2017 15:26
[2017-01-01 18:00] VITALS: BP 130/74
[2017-01-01] MEDS: inSUlin DETERMIR 1 UNIT/0.01 ML (LEVEMIR) CHARGE PER UNIT SQ SCH (20:12)
[2017-01-02 05:05] VITALS: BP 134/83
[2017-01-02] MEDS: inSUlin ASPART (NovoLOG) 1 UNIT/0.01 ML (CHARGE PER UNIT) SC SCH ×4 (05:09→20:50)
[2017-01-02] MEDS: metFORMIN XR 500 MG (GLUCOPHAGE XR) TAB PO SCH ×2 (06:11→17:28)
[2017-01-02] MEDS: CATHETER FLUSH 10 ML SYR IV PRN ×2 (06:11→22:53)
[2017-01-02] MEDS: PIPERACILLIN/TAZOBACTAM 4.5 GM/NS 100 ML IVPB IV SCH ×6 (06:11→22:53)
[2017-01-02] MEDS: LACTOBACILLUS Acidoph/Bulgar (LACTINEX/FLORANEX) TAB PO SCH ×3 (06:11→16:10)
[2017-01-02] MEDS: lisINopril 10 MG (PRINIVIL) TAB PO SCH (07:56)
[2017-01-02] MEDS: GABAPENTIN 100 MG (NEURONTIN) CAP PO SCH ×2 (07:56→20:16)
[2017-01-02] MEDS: amLODIPine 5 MG (NORVASC) TAB PO SCH (07:56)
--- NOTE | 2017-01-02 08:36 | Progress Note (SOAP) ---
Subjective Subjective/Events-last exam AMPUTEE. pATIENT NOT VOMITING TODAY. Patient feeling much better and appears happy Objective Exam Vital Signs Date Time Temp Pulse Resp B/P Pulse Ox O2 Delivery O2 Flow Rate FiO2 01/02/17 05:05 98.0 100 18 134/83 98 Room Air 01/01/17 20:29 Room Air 01/01/17 18:00 98.7 93 16 130/74 96 Room Air 01/01/17 09:09 Room Air 01/01/17 09:00 98.9 I & O 01/02/17 07:00 Intake Total 2190 ml Balance 2190 ml Capillary Refill : General Appearance: No Apparent Distress WD/WN Results Lab Laboratory Tests 01/01/17 11:18: Glucometer 104 01/01/17 16:13: Glucometer 130H 01/01/17 20:11: Glucometer 172H Microbiology 12/26/16 C. difficile GDH Antigen & Toxins - Final, Complete Assessment/Plan Assessment/Plan Assess & Plan/Chief Complaint left below the knee amputation. Diabetes. Hypertension. COPD. Former smoker. Sepsis. Patient on IV antibiotics. . 12/26/16. New-onset diarrhea. Left below the knee amputation. Diabetes. Hypertension. COPD. Sepsis. To check for C. difficile. . 12/27/16. Left below the knee amputation. Diabetes. Hypertension. COPD. C. difficile negative. Diarrhea no more. . 12/30/16 left below the knee amputation. Diabetes. Hypertension. COPD. Patient has Gaulding in groin area.. Patient feeling better. . 12/31/16. Left below the knee amputation. Diabetes. Hypertension. COPD. Sepsis. Patient seems happy and improving. Patient feel she is doing much better. . 01/01/17 left below knee amputation. Diabetes. Hypertension. COPD. Sepsis. Patient vomiting this morning. Patient put on Zofran. . 01/02/17. Left below knee amputation. Patient not vomiting today and eating. Diabetes under good control. Hypertension. COPD. Patient positive today Clinical Quality Measures DVT/VTE Risk/Contraindication: Risk Factor Score Per Nursin RFS Level Per Nursing on Admit: 4+=Very High RAYMOND SHELLEY DO Jan 02, 2017 08:36
--- NOTE | 2017-01-02 08:59 | Physical Therapy Daily Note ---
PT Daily Note-Current Subjective Patient in bed pre tx, agrees to PT. Patient has no complaints of pain and states she feels much better today. Appearance Patient in bathroom on toilet post tx. Nurse call in reach. Mental Status Patient Orientation: Normal For Age Attachments: IV Transfers Functional [place] Measure 0=Not Assessed/NA 4=Minimal Assistance 1=Total Assistance 5=Supervision or Setup 2=Maximal Assistance 6=Modified [place] 3=Moderate Assistance 7=Complete IndependenceIRFPAI Quality Coding Scale 6 Independent with activity with or without an assistive device 5 Patient requires set up or clean up by helper. Patient completes activity by themselves 4 Supervision or touching assist (CGA). [place] provide cues , steadying assist 3 The helper provides less than half the effort to complete the activity 2 The helper provides more than half the effort to complete the activity 1 Dependent. The helper does all the effort to complete an activity 7 Patient refused to complete or attempt activity 9 The patient did not perform the activity before the current illness or injury 88 Not attempted due to Medical conditions or safety concerns Transfers (B, C, W/C) (FIM): 5 Scootin Rollin Roll Left to Right (QC): 6 Supine to/from Sit: 6 Sit to/from Stand: 5 Sit to Lying (QC): 6 Sit to Stand (QC): 4 Chair/Cxr-zk-Jefxk Xfer(QC): 4 Bed to/from Chair: 5 Gait Training Gait (FIM): 2 Distance: 50'x3, 25' Walk 10 feet (QC): 4 Walk 50 ft with 2 Turns(QC): 4 Walk 150 ft (QC): 88 Walking 10ft/uneven surface-QC: 4 (CGA) Gait Level of Assist: 5 Gait Persons Needed: 1 Gait Assistive Device: FWW Wheelchair Training Wheelchair (FIM): 6 Distance: 150'x2 Wheel 50 ft with 2 turns (QC): 6 Wheel 150 ft (QC): 6 Type of Wheelchair: Manual Stair Training 1 Step (curb) (QC): 88 4 Steps (QC): 88 12 Steps (QC): 88 Balance Picking up an Object (QC): 88 Exercises prone hip flexor stretch 5 min, QS x 20 NuStep Minutes: 15 NuStep Workload: 5 Treatments bed mobility and transfers, ambulation, functional strengthening, ROM Assessment Current Status: Good Progress Patient has made good progress during her stay, she has kept good ROM in preparation to getting a prosthetic leg. PT Short Term Goals Short Term Goals Time Frame: Dec 31, 2016 Transfers (B,C,W/C) (FIM): 4 (CGA) Gait (FIM): 2 Gait Distance Comment: 50' Gait Level of Assist: 4 (CGA) Gait Assistive Device: FWW Wheelchair Distance: 150'x2 PT Penitentiary Goals Penitentiary Goals PT Animation Director Goals Time Frame: Jan 14, 2017 Transfers (B,C,W/C) (FIM): 5 (met) Sit to Lying (QC): 6 (met) Lying-Sitting on Side/Bed(QC): 6 (met) Sit to Stand (QC): 4 (met) Rollin (jmet) Roll Left to Right (QC): 6 (met) Chair/Qvd-rg-Jobwt Xfer(QC): 4 (met) Car Transfer (QC): 4 Does the Patient Walk: Yes Gait (FIM): 5 Distance: 150' Walk 10 feet (QC): 4 (met) Walk 10ft-Uneven Surface(QC): 4 (met) Walk 50ft with 2 Turns (QC): 4 (met) Walk 150 ft (QC): 4 Gait Level of Assist: 5 Gait Assistive Device: FWW Stairs (FIM): 2 # of Steps: 4 1 Step (curb) (QC): 4 4 Steps (QC): 4 12 Steps (QC): 88 Stairs Level Of Assist: 4 Picking up an Object (QC): 88 PT Plan Problem List Problem List: Activity Tolerance, Functional Strength, Safety, Balance, Gait, Transfer, ROM Treatment/Plan Treatment Plan: Continue Plan of Care Treatment Plan: Bed Mobility, Education, Functional Activity Anatoly, Functional Strength, Group Therapy, Gait, Safety, Therapeutic Exercise, Transfers Treatment Duration: Jan 14, 2017 Visits Per Week: 10-11 Minutes/Day (M-F): 60-90 Minutes/Day (Sat/[place]): 15-30 Safety Risks/Education Patient Education: Gait Training, Transfer Techniques, Correct Positioning, W/ C Management, Safety Issues Teaching Recipient: Patient Teaching Methods: Demonstration, Discussion Response to Teaching: Reinforcement Needed Time/GCodes Time In: 800 Time Out: 900 Total Billed Treatment Time: 60 Total Billed Treatment 1 visit GT 30 min EX 30 min DESIRE SORIA PT Jan 02, 2017 08:59
--- NOTE | 2017-01-02 09:21 | PM & R (SOAP) Progress Note ---
Subjective Subjective/Events-last exam Patient was seen in her room this AM Missed some therapies yesterday due to nausea Appreciate DR Vigil note and orders.Patient SBA for transfers Nausea resolved and patient feeling well this AM Current labs noted. Objective Exam Last Set of Vital Signs Vital Signs Date Time Temp Pulse Resp B/P Pulse Ox O2 Delivery O2 Flow Rate FiO2 01/02/17 09:00 Room Air 01/02/17 05:05 98.0 100 18 134/83 98 Capillary Refill : I&O Intake and Output 01/02/17 00:00 Intake Total 1784 ml Balance 1784 ml Intake Oral 1584 ml IV Total 200 ml # Voids 9 # Bowel Movements 1 General: Alert, No Acute Distress HEENT: Atraumatic Neck: Supple Lungs: Clear to Auscultation, Normal Air Movement Heart: Regular Rate Abdomen: Normal Bowel Sounds, Soft Extremities: Other (L BKA with healing incision.) Skin: Other (clustered area of pressure ulcer 3.5 x 2.8 x 0.3 cm, base 100% slough.) Neuro: Normal Speech, Cranial Nerves 3-12 NL Psych/Mental Status: Mental Status NL, Mood NL Results Lab Laboratory Tests 12/30/16 10:59: Glucometer 111H 12/30/16 11:50: Alanine Aminotransferase (ALT/SGPT) 15, Albumin 2.9L, Alkaline Phosphatase 89, Anion Gap 11, Aspartate Amino Transf (AST/SGOT) 26, BUN/Creatinine Ratio 14, Band Neutrophils 0, Basophils # (Auto) 0.1, Basophils (%) (Auto) 1, Blood Morphology Comment NORMAL, Blood Urea Nitrogen 11, Calcium Level 8.7, Carbon Dioxide Level 24, Chloride Level 104, Creatinine 0.78, Eosinophils # (Auto) 0.2 , Eosinophils % (Manual) 6, Eosinophils (%) (Auto) 3, Estimat Glomerular Filtration Rate > 60, Glucose Level 106H, Hematocrit 30L, Hemoglobin 10.1L, Lymphocytes # (Auto) 1.6, Lymphocytes % (Manual) 20, Lymphocytes (%) (Auto) 23, Mean Corpuscular Hemoglobin 30, Mean Corpuscular Hemoglobin Concent 34, Mean Corpuscular Volume 88, Mean Platelet Volume 8.1, Monocytes # (Auto) 0.5, Monocytes % (Manual) 11, Monocytes (%) (Auto) 8, Neutrophils # (Auto) 4.6, Neutrophils % (Manual) 63, Neutrophils (%) (Auto) 66, Platelet Count 594H, Potassium Level 3.7, Red Blood Count 3.42L, Red Cell Distribution Width 14.3, Sodium Level 139, Total Bilirubin 0.2, Total Protein 7.4, White Blood Count 7.1 12/30/16 16:13: Glucometer 148H 12/30/16 20:11: Glucometer 184H 12/31/16 06:29: Glucometer 113H 12/31/16 10:57: Glucometer 143H 12/31/16 15:54: Glucometer 141H 12/31/16 20:28: Glucometer 147H 01/01/17 05:35: Glucometer 95 01/01/17 11:18: Glucometer 104 01/01/17 16:13: Glucometer 130H 01/01/17 20:11: Glucometer 172H Microbiology 12/26/16 C. difficile GDH Antigen & Toxins - Final, Complete Assessment/Plan Assessment S/P LBKA DM Controlled Pressure sore-healing well COPD Postop anemia nausea resolved Plan Continue PT/OT/Wound care Appreciate Dr vigil note and orders as well as DR Ann. Monitor Accuchecks and adjuste meds as needed Team Conference held yesterday-See report for full functional update and POC and ELOS Discharge set tentatively for next Friday the home with family. WANG ADAMS MD Jan 02, 2017 09:21
[2017-01-02] MEDS: ZINC OXIDE 16% OINT (BUTT PASTE) 113 GM TUBE TOP SCH ×2 (10:03→20:50)
--- NOTE | 2017-01-02 12:00 | Occupational Ther Daily Note ---
OT Current Status-Daily Note Subjective Pt sitting in w/c, agrees to treatment. Pt has no c/o pain. Pt states she is ready for discharge tomorrow. Mental Status/Objective Functional [place] Measure 0=Not Assessed/NA 4=Minimal Assistance 1=Total Assistance 5=Supervision or Setup 2=Maximal Assistance 6=Modified [place] 3=Moderate Assistance 7=Complete [place] ADL-Treatment Pt performed w/c mobility to shower room without assistance. Transfer w/c <-> shower bench with SBA using grab bars. Doff clothing without assistance. Pt completed seated bathing using hand held shower. Pt able to wash/dry all areas with SBA. Pt weight shifted left and right to wash buttocks while seated. Don pullover shirt with set up. Pt donned underwear and pants with SBA for standing balance during pant hike. Pt donned sock with set up. Grooming tasks completed while seated at sink. Pt brushed teeth and combed hair with modified independence. Transfer w/c <-> toilet with supervision. Pt able to manage clothing and complete toileting hygiene with supervision. Pt transferred to EOB with SBA. Sit to supine with modified independence. Pt in bed with needs met after session. Pt states she has no questions or concerns regarding ADLs/home safety. States she will have family to assist as needed. Functional [place] Measure 0=Not Assessed/NA 4=Minimal Assistance 1=Total Assistance 5=Supervision or Setup 2=Maximal Assistance 6=Modified [place] 3=Moderate Assistance 7=Complete IndependenceIRFPAI Quality Coding Scale 6 Independent with activity with or without an assistive device 5 Patient requires set up or clean up by helper. Patient completes activity by themselves 4 Supervision or touching assist (CGA). [place] provide cues , steadying assist 3 The helper provides less than half the effort to complete the activity 2 The helper provides more than half the effort to complete the activity 1 Dependent. The helper does all the effort to complete an activity 7 Patient refused to complete or attempt activity 9 The patient did not perform the activity before the current illness or injury 88 Not attempted due to Medical conditions or safety concerns Eating (FIM): 6 (Family reports feeding self and managing containers at meals) Eating (QC): 6 Grooming (FIM): 6 Oral Hygiene (QC): 6 Bathing (FIM): 5 Shower/Bathe Self (QC): 4 (SBA) Upper Body (FIM): 5 Upper Body Dressing (QC): 5 (Set up) Lower Body Dressing (FIM): 5 Lower Body Dressing (QC): 4 (SBA) On/Off Footwear (QC): 5 Toileting (FIM): 5 Toileting Hygiene (QC): 4 (SBA) Toilet/Commode Transfer (FIM): 5 Toilet Transfer (QC): 4 Shower Transfer(FIM): 5 OT Short Term Goals Short Term Goals Time Frame: Dec 31, 2016 Bathing(FIM): 5 Upper Body Dressing(FIM): 5 Lower Body Dressing(FIM): 5 Toileting(FIM): 5 Transfers (B,C,W/C) (FIM): 4 (CGA) Toilet/Commode Transfer(FIM): 5 Additional Short Term Goals: 2-Verbalize Understanding, 3-ImproveStrength/Anatoly 1=Demonstrate adherence to instructed precautions during ADL tasks. 2=Patient will verbalize/demonstrate understanding of assistive devices/ modifications for ADL. 3=Patient will improve strength/tolerance for activity to enable patient to perform ADL's. OT Zipper Slide Attacher Goals Assisted Goals Time Frame: Jan 14, 2017 Eating (FIM): 6 (met 01/02/17) Eating (QC): 6 (6-MET) Groomin (met 01/02/17) Oral Hygiene (QC): 6 (6-MET) Bathing(FIM): 6 (not met) Shower/Bathe Self (QC): 6 (4-not met) Upper Body Dressing(FIM): 6 (not met) Upper Body Dressing (QC): 6 (5-not met) Lower Body Dressing(FIM): 6 (not met) Lower Body Dressing (QC): 6 (4-not met) On/Off Footwear (QC): 6 (5-not met) Toileting(FIM): 6 (not met) Toileting Hygiene (QC): 6 (5-) Toilet/Commode Transfer(FIM): 6 (not met) Toilet/Commode Transfer (QC): 6 (5-not met) Shower Transfer(FIM): 6 (not met) Increase bilat UE strength to 5/5 as needed for functional mobility and ADLs Additional Goals: 2-Verbalize Understanding, 3-ImproveStrength/Anatoly 1=Demonstrate adherence to instructed precautions during ADL tasks. 2=Patient will verbalize/demonstrate understanding of assistive devices/ modifications for ADL. 3=Patient will improve strength/tolerance for activity to enable patient to perform ADL's. OT Education/Plan Problem List/Assessment Pt would benefit from skilled OT to increase her independence in basic self care to allow her to return home safely to live with and family after L BKA. Discharge Recommendations Plan/Recommendations: Continue POC Treatment Plan/Plan of Care Patient would benefit from OT for education, treatment and training to promote independence in ADL's, mobility, safety and/or upper extremity function for ADL' s. Plan of Care: ADL Retraining, Functional Mobility, Group Exercise/Act as Ind ( education, exercise, activity tolerance, socialization, funct activities), UE Funct Exercise/Act, UE Neuromus Re-Ed/Coord Treatment Duration: Jan 14, 2017 Visits Per Week: 10-11 Minutes/Day (M-F): 75-90 Minutes/Day (Sat/[place]): PRN Agreement: Yes Rehab Potential: Fair Time/GCodes Start Time: 09:45 Stop Time: 10:45 Total Time Billed (hr/min): 60 Billed Treatment Time 1 visit, ADLx4(60minutes) VITOR KUMAR OT Jan 02, 2017 12:00
--- NOTE | 2017-01-02 14:12 | Occupational Ther Daily Note ---
OT Current Status-Daily Note Subjective Pt in bed, agrees to treatment. Mental Status/Objective Functional [place] Measure 0=Not Assessed/NA 4=Minimal Assistance 1=Total Assistance 5=Supervision or Setup 2=Maximal Assistance 6=Modified [place] 3=Moderate Assistance 7=Complete [place] ADL-Treatment Functional [place] Measure 0=Not Assessed/NA 4=Minimal Assistance 1=Total Assistance 5=Supervision or Setup 2=Maximal Assistance 6=Modified [place] 3=Moderate Assistance 7=Complete IndependenceIRFPAI Quality Coding Scale 6 Independent with activity with or without an assistive device 5 Patient requires set up or clean up by helper. Patient completes activity by themselves 4 Supervision or touching assist (CGA). [place] provide cues , steadying assist 3 The helper provides less than half the effort to complete the activity 2 The helper provides more than half the effort to complete the activity 1 Dependent. The helper does all the effort to complete an activity 7 Patient refused to complete or attempt activity 9 The patient did not perform the activity before the current illness or injury 88 Not attempted due to Medical conditions or safety concerns Other Treatment Supine to sit with modified independence. Transfer to w/c with supervision. Pt performed w/c mobility to therapy gym without assistance. Pt performed arm bike activity x16 minutes at 15 valdovinos resistance to increase overall strength and activity tolerance needed for ADLs and transfers. Pt completed task with steady pace and no rest breaks. Arc activity completed with bilateral UE with 1# weights in place to increase strength needed for ADL performance. Pt returned to room, in bed with needs met after session. OT Short Term Goals Short Term Goals Time Frame: Dec 31, 2016 Bathing(FIM): 5 Upper Body Dressing(FIM): 5 Lower Body Dressing(FIM): 5 Toileting(FIM): 5 Transfers (B,C,W/C) (FIM): 4 (CGA) Toilet/Commode Transfer(FIM): 5 Additional Short Term Goals: 2-Verbalize Understanding, 3-ImproveStrength/Anatoly 1=Demonstrate adherence to instructed precautions during ADL tasks. 2=Patient will verbalize/demonstrate understanding of assistive devices/ modifications for ADL. 3=Patient will improve strength/tolerance for activity to enable patient to perform ADL's. OT Commissary Worker Goals Commissary Worker Goals Time Frame: Jan 14, 2017 Eating (FIM): 6 (met 01/02/17) Eating (QC): 6 (6-MET) Groomin (met 01/02/17) Oral Hygiene (QC): 6 (6-MET) Bathing(FIM): 6 (not met) Shower/Bathe Self (QC): 6 (4-not met) Upper Body Dressing(FIM): 6 (not met) Upper Body Dressing (QC): 6 (5-not met) Lower Body Dressing(FIM): 6 (not met) Lower Body Dressing (QC): 6 (4-not met) On/Off Footwear (QC): 6 (5-not met) Toileting(FIM): 6 (not met) Toileting Hygiene (QC): 6 (5-) Toilet/Commode Transfer(FIM): 6 (not met) Toilet/Commode Transfer (QC): 6 (5-not met) Shower Transfer(FIM): 6 (not met) Increase bilat UE strength to 5/5 as needed for functional mobility and ADLs Additional Goals: 2-Verbalize Understanding, 3-ImproveStrength/Anatoly 1=Demonstrate adherence to instructed precautions during ADL tasks. 2=Patient will verbalize/demonstrate understanding of assistive devices/ modifications for ADL. 3=Patient will improve strength/tolerance for activity to enable patient to perform ADL's. OT Education/Plan Problem List/Assessment Pt would benefit from skilled OT to increase her independence in basic self care to allow her to return home safely to live with and family after L BKA. Discharge Recommendations Plan/Recommendations: Continue POC Treatment Plan/Plan of Care Patient would benefit from OT for education, treatment and training to promote independence in ADL's, mobility, safety and/or upper extremity function for ADL' s. Plan of Care: ADL Retraining, Functional Mobility, Group Exercise/Act as Ind ( education, exercise, activity tolerance, socialization, funct activities), UE Funct Exercise/Act, UE Neuromus Re-Ed/Coord Treatment Duration: Jan 14, 2017 Visits Per Week: 10-11 Minutes/Day (M-F): 75-90 Minutes/Day (Sat/[place]): PRN Agreement: Yes Rehab Potential: Fair Time/GCodes Start Time: 13:00 Stop Time: 13:30 Total Time Billed (hr/min): 30 Billed Treatment Time 1 visit, EXx2(30minutes) VITOR KUMAR OT Jan 02, 2017 14:12
--- NOTE | 2017-01-02 14:30 | Physical Therapy Daily Note ---
PT Daily Note-Current Subjective Patient in bed pre tx, agrees to PT, no complaints of pain. Appearance Patient BTB post tx with nurse call, phone, tray, all needs met. Mental Status Patient Orientation: Normal For Age Transfers Functional [place] Measure 0=Not Assessed/NA 4=Minimal Assistance 1=Total Assistance 5=Supervision or Setup 2=Maximal Assistance 6=Modified [place] 3=Moderate Assistance 7=Complete IndependenceIRFPAI Quality Coding Scale 6 Independent with activity with or without an assistive device 5 Patient requires set up or clean up by helper. Patient completes activity by themselves 4 Supervision or touching assist (CGA). [place] provide cues , steadying assist 3 The helper provides less than half the effort to complete the activity 2 The helper provides more than half the effort to complete the activity 1 Dependent. The helper does all the effort to complete an activity 7 Patient refused to complete or attempt activity 9 The patient did not perform the activity before the current illness or injury 88 Not attempted due to Medical conditions or safety concerns Transfers (B, C, W/C) (FIM): 6 Scootin Rollin Supine to/from Sit: 6 Sit to/from Stand: 6 Gait Training Gait (FIM): 2 Distance: 50'x4 Gait Level of Assist: 5 Gait Persons Needed: 1 Gait Assistive Device: FWW slow but careful and no LOB or unsteadiness Treatments bed mobility and transfers, ambulation Assessment Current Status: Fair Progress improving endurance, but needs rest breaks between walks PT Short Term Goals Short Term Goals Time Frame: Dec 31, 2016 Transfers (B,C,W/C) (FIM): 4 (CGA) Gait (FIM): 2 Gait Distance Comment: 50' Gait Level of Assist: 4 (CGA) Gait Assistive Device: FWW Wheelchair Distance: 150'x2 PT [facility]ci Goals Bridge Engineer Goals PT [facility] Goals Time Frame: Jan 14, 2017 Transfers (B,C,W/C) (FIM): 5 (met) Sit to Lying (QC): 6 (met) Lying-Sitting on Side/Bed(QC): 6 (met) Sit to Stand (QC): 4 (met) Rollin (jmet) Roll Left to Right (QC): 6 (met) Chair/Aln-tv-Okyav Xfer(QC): 4 (met) Car Transfer (QC): 4 Does the Patient Walk: Yes Gait (FIM): 5 Distance: 150' Walk 10 feet (QC): 4 (met) Walk 10ft-Uneven Surface(QC): 4 (met) Walk 50ft with 2 Turns (QC): 4 (met) Walk 150 ft (QC): 4 Gait Level of Assist: 5 Gait Assistive Device: FWW Stairs (FIM): 2 # of Steps: 4 1 Step (curb) (QC): 4 4 Steps (QC): 4 12 Steps (QC): 88 Stairs Level Of Assist: 4 Picking up an Object (QC): 88 PT Plan Problem List Problem List: Activity Tolerance, Functional Strength, Safety, Balance, Gait, ROM Treatment/Plan Treatment Plan: Continue Plan of Care Treatment Plan: Bed Mobility, Education, Functional Activity Anatoly, Functional Strength, Group Therapy, Gait, Safety, Therapeutic Exercise, Transfers Treatment Duration: Jan 14, 2017 Visits Per Week: 10-11 Minutes/Day (M-F): 60-90 Minutes/Day (Sat/[place]): 15-30 Safety Risks/Education Patient Education: Gait Training, Transfer Techniques, Safety Issues Teaching Recipient: Patient Teaching Methods: Demonstration, Discussion Response to Teaching: Reinforcement Needed Time/GCodes Time In: 1400 Time Out: 1430 Total Billed Treatment Time: 30 Total Billed Treatment 1 visit GT 30 min DESIRE SORIA PT Jan 02, 2017 14:30
[2017-01-02] MEDS ORDERED: HYDR-3820 PO (16:33)
[2017-01-02] MEDS ORDERED: ZINC28PA TOP (16:33)
[2017-01-02] MEDS ORDERED: INSU100V5 SQ (16:33)
[2017-01-02] MEDS ORDERED: NYST15CR TP (16:33)
[2017-01-02] MEDS ORDERED: METR500T PO (16:42)
[2017-01-02 18:00] VITALS: BP 156/85
[2017-01-02] MEDS: HYDROcodone/APAP 10 MG/325 MG (LORTAB) TAB PO PRN (19:47)
[2017-01-02] MEDS: inSUlin DETERMIR 1 UNIT/0.01 ML (LEVEMIR) CHARGE PER UNIT SQ SCH (20:55)
[2017-01-02] MEDS: ALPRAZolam 1 MG (XANAX) TAB PO PRN (20:58)
--- NOTE | 2017-01-02 22:54 | Wound Care Progress Note ---
Subjective Subjective Subjective/Events-last exam 51 year old female with pressure area of sacral area, improving with barrier cream and off-loading. The patient is planning to be discharged in the next day or two. She lives in [place] [address], [place]. she is instructed to seek follow-up with her primary care and referral to Wound center, if her PCP is not comfortable managing her pressure ulcer. She is instructed that this is a serious lesion, and needs to be under the care of a doctor for it. PMFSH: No interval change. Review of Systems Pulmonary: No Dyspnea Cardiovascular: No: Chest Pain Objective Exam Last Set of Vital Signs Vital Signs Date Time Temp Pulse Resp B/P Pulse Ox O2 Delivery O2 Flow Rate FiO2 01/02/17 21:15 Room Air 01/02/17 18:00 98.3 103 18 156/85 99 Capillary Refill : I&O Intake and Output 01/02/17 00:00 Intake Total 1784 ml Balance 1784 ml Intake Oral 1584 ml IV Total 200 ml # Voids 9 # Bowel Movements 1 General: Alert, No Acute Distress Lungs: Normal Air Movement Skin: Other (Wound is clean and improving.) Results Lab Laboratory Tests 01/02/17 05:08: Glucometer 84 01/02/17 11:15: Glucometer 114H 01/02/17 16:40: Glucometer 142H 01/02/17 20:43: Glucometer 199H Microbiology 12/26/16 C. difficile GDH Antigen & Toxins - Final, Complete Assessment/Plan Assessment/Plan Assessment/Plan 1. Healing unstageable sacral pressure ulcer. Plan: The patient is to follow-up with PCP and.or wound care. KRISTIE VALLADARES MD Jan 02, 2017 22:54
[2017-01-03 05:00] VITALS: BP 112/66
[2017-01-03] MEDS: inSUlin ASPART (NovoLOG) 1 UNIT/0.01 ML (CHARGE PER UNIT) SC SCH (05:09)
[2017-01-03] MEDS: LACTOBACILLUS Acidoph/Bulgar (LACTINEX/FLORANEX) TAB PO SCH (06:04)
[2017-01-03] MEDS: metFORMIN XR 500 MG (GLUCOPHAGE XR) TAB PO SCH (06:05)
[2017-01-03] MEDS: PIPERACILLIN/TAZOBACTAM 4.5 GM/NS 100 ML IVPB IV SCH ×2 (07:00)
--- NOTE | 2017-01-03 07:43 | Progress Note (SOAP) ---
Subjective Subjective/Events-last exam ppatient be discharged today. Amputee. Patient voices no complaints. Sugars are good. No vomiting Objective Exam Vital Signs Date Time Temp Pulse Resp B/P Pulse Ox O2 Delivery O2 Flow Rate FiO2 01/03/17 05:00 99.0 93 18 112/66 99 Room Air 01/02/17 21:15 Room Air 01/02/17 18:00 98.3 103 18 156/85 99 Room Air 01/02/17 09:00 Room Air I & O 01/03/17 07:00 Intake Total 1855 ml Balance 1855 ml Capillary Refill : General Appearance: No Apparent Distress WD/WN Results Lab Laboratory Tests 01/02/17 11:15: Glucometer 114H 01/02/17 16:40: Glucometer 142H 01/02/17 20:43: Glucometer 199H 01/03/17 04:31: Glucometer 101 Microbiology 12/26/16 C. difficile GDH Antigen & Toxins - Final, Complete Assessment/Plan Assessment/Plan Assess & Plan/Chief Complaint left below the knee amputation. Diabetes. Hypertension. COPD. Former smoker. Sepsis. Patient on IV antibiotics. . 12/26/16. New-onset diarrhea. Left below the knee amputation. Diabetes. Hypertension. COPD. Sepsis. To check for C. difficile. . 12/27/16. Left below the knee amputation. Diabetes. Hypertension. COPD. C. difficile negative. Diarrhea no more. . 12/30/16 left below the knee amputation. Diabetes. Hypertension. COPD. Patient has [place] in groin area.. Patient feeling better. . 12/31/16. Left below the knee amputation. Diabetes. Hypertension. COPD. Sepsis. Patient seems happy and improving. Patient feel she is doing much better. . 01/01/17 left below knee amputation. Diabetes. Hypertension. COPD. Sepsis. Patient vomiting this morning. Patient put on Zofran. . 01/02/17. Left below knee amputation. Patient not vomiting today and eating. Diabetes under good control. Hypertension. COPD. Patient positive today. . Patient to be discharged today. Left below-knee amputation. Hypertension. Diabetes under good control. COPD Clinical Quality Measures DVT/VTE Risk/Contraindication: Risk Factor Score Per Nursin RFS Level Per Nursing on Admit: 4+=Very High RAYMOND SHELLEY DO Jan 03, 2017 07:43
--- NOTE | 2017-01-03 08:47 | Therapy Team Discharge Summary ---
Therapy Discharge Summary Discharge Recommendations Date of Discharge Jan 03, 2017 at 08:00 Therapy D/C Recommendations: Home w/ Family Support, Occupational Therapy Home Care Occupational Therapy Pt seen for skilled OT to increase her independence in basic self care to allow her to return home safely with family after R BKA. On admission she needed min to CGA for bathing, lower body dressing, toileting and toilet/shower transfers, setup for grooming and upper body dressing and was independent with eating. By discharge she was modified indep with eating, grooming and needed setup or SBA for bathing, dressing and toileting. Equipment used included shower bench, grab bars, hand held shower, tall toilet, FWW and w/c. Pt would benefit from home health OT. See tx plan for goals met. DC OT PT Jigman Goals Jigman Goals PT [facility] Goals Time Frame: Jan 14, 2017 Transfers (B,C,W/C) (FIM): 5 (met) Roll Left to Right (QC): 6 (met) Sit to Lying (QC): 6 (met) Lying-Sitting on Side/Bed(QC): 6 (met) Sit to Stand (QC): 4 (met) Chair/Wjn-ws-Sbhgt Xfer(QC): 4 (met) Car Transfer (QC): 4 Does the Patient Walk: Yes Gait (FIM): 5 Distance: 150' Walk 10 feet (QC): 4 (met) Walk 10ft-Uneven Surface(QC): 4 (met) Walk 50ft with 2 Turns (QC): 4 (met) Walk 150 ft (QC): 4 Gait Level of Assist: 5 Gait Assistive Device: FWW Stairs (FIM): 2 # of Steps: 4 1 Step (curb) (QC): 4 4 Steps (QC): 4 12 Steps (QC): 88 Stairs Level Of Assist: 4 Picking up an Object (QC): 88 OT [facility] Goals Jigman Goals Time Frame: Jan 14, 2017 Eating (FIM): 6 (met 01/02/17) Eating (QC): 6 (6-MET) Oral Hygiene (QC): 6 (6-MET) Grooming(FIM): 6 (met 01/02/17) Bathing(FIM): 6 (not met) Shower/Bathe Self (QC): 6 (4-not met) Upper Body Dressing(FIM): 6 (not met) Upper Body Dressing (QC): 6 (5-not met) Lower Body Dressing(FIM): 6 (not met) Lower Body Dressing (QC): 6 (4-not met) On/Off Footwear (QC): 6 (5-not met) Toileting(FIM): 6 (not met) Toileting Hygiene (QC): 6 (5-) Toilet/Commode Transfer(FIM): 6 (not met) Toilet/Commode Transfer (QC): 6 (5-not met) Shower Transfer(FIM): 6 (not met) Increase bilat UE strength to 5/5 as needed for functional mobility and ADLs Additional Goals: 2-Verbalize Understanding, 3-ImproveStrength/Anatoly 1=Demonstrate adherence to instructed precautions during ADL tasks. 2=Patient will verbalize/demonstrate understanding of assistive devices/ modifications for ADL. 3=Patient will improve strength/tolerance for activity to enable patient to perform ADL's. MAURA SARKAR OT Jan 03, 2017 08:46
--- NOTE | 2017-01-03 09:03 | PM & R (SOAP) Progress Note ---
Subjective Subjective/Events-last exam Patient was seen in [place] .Family has arrived early to take patient home with them Discussed case with RN Objective Exam Last Set of Vital Signs Vital Signs Date Time Temp Pulse Resp B/P Pulse Ox O2 Delivery O2 Flow Rate FiO2 01/03/17 05:00 99.0 93 18 112/66 99 Room Air Capillary Refill : I&O Intake and Output 01/03/17 00:00 Intake Total 2075 ml Balance 2075 ml Intake Oral 1875 ml IV Total 200 ml # Voids 10 # Bowel Movements 2 General: Alert, No Acute Distress HEENT: Atraumatic Neck: Supple Lungs: Clear to Auscultation, Normal Air Movement Heart: Regular Rate Abdomen: Normal Bowel Sounds, Soft Extremities: Other (L BKA with healing incision.) Skin: Other (clustered area of pressure ulcer 3.5 x 2.8 x 0.3 cm, base 100% slough.) Neuro: Normal Speech, Cranial Nerves 3-12 NL Psych/Mental Status: Mental Status NL, Mood NL Results Lab Laboratory Tests 12/31/16 10:57: Glucometer 143H 12/31/16 15:54: Glucometer 141H 12/31/16 20:28: Glucometer 147H 01/01/17 05:35: Glucometer 95 01/01/17 11:18: Glucometer 104 01/01/17 16:13: Glucometer 130H 01/01/17 20:11: Glucometer 172H 01/02/17 05:08: Glucometer 84 01/02/17 11:15: Glucometer 114H 01/02/17 16:40: Glucometer 142H 01/02/17 20:43: Glucometer 199H 01/03/17 04:31: Glucometer 101 Microbiology 12/26/16 C. difficile GDH Antigen & Toxins - Final, Complete Assessment/Plan Assessment S/P LBKA DM Controlled Pressure sore-healing well COPD Postop anemia nausea resolved Plan Discharge moved up to today to home with family See orders F/U with Elsie Augustin. WANG ADAMS MD Jan 03, 2017 09:03
--- NOTE | 2017-01-03 10:54 | Therapy Team Discharge Summary ---
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 Upon admission patient performed bed mobility with SBA and transfers with min assist, ambulated 5' with a rolling walker with min assist, and was able to propel a manual wheelchair 150' with SBA, no stairs at this time. Patient has been performing bed mobility and transfer training, balance and endurance training, functional strengthening, gait training, ROM exercises, and education. She was never able to perform stairs safely. Patient has made good progress and has maintained full knee extension and hip extension on her residual limb and she was able to meet all her bed mobility and transfer watermelon inspector goals but not her ambulation or stairs. Now, patient performs bed mobility with mod I and transfers with SBA , ambulates 50' with a rolling walker with SBA (10' over an uneven surface with CGA and 50' with at least 2 turns of 90 degrees with SBA), and can propel a manual wheelchair with mod I. Patient has been discharged from this facility today and will be discharged from PT at this time. PT Mobile Application Development Lead Goals Mobile Application Development Lead Goals PT Mobile Application Development Lead Goals Time Frame: Jan 14, 2017 Transfers (B,C,W/C) (FIM): 5 (met) Roll Left to Right (QC): 6 (met) Sit to Lying (QC): 6 (met) Lying-Sitting on Side/Bed(QC): 6 (met) Sit to Stand (QC): 4 (met) Chair/Wvw-ji-Cwixh Xfer(QC): 4 (met) Car Transfer (QC): 4 Does the Patient Walk: Yes Gait (FIM): 5 Distance: 150' Walk 10 feet (QC): 4 (met) Walk 10ft-Uneven Surface(QC): 4 (met) Walk 50ft with 2 Turns (QC): 4 (met) Walk 150 ft (QC): 4 Gait Level of Assist: 5 Gait Assistive Device: FWW Stairs (FIM): 2 # of Steps: 4 1 Step (curb) (QC): 4 4 Steps (QC): 4 12 Steps (QC): 88 Stairs Level Of Assist: 4 Picking up an Object (QC): 88 OT Intermediate Goals Intermediate Goals Time Frame: Jan 14, 2017 Eating (FIM): 6 (met 01/02/17) Eating (QC): 6 (6-MET) Oral Hygiene (QC): 6 (6-MET) Grooming(FIM): 6 (met 01/02/17) Bathing(FIM): 6 (not met) Shower/Bathe Self (QC): 6 (4-not met) Upper Body Dressing(FIM): 6 (not met) Upper Body Dressing (QC): 6 (5-not met) Lower Body Dressing(FIM): 6 (not met) Lower Body Dressing (QC): 6 (4-not met) On/Off Footwear (QC): 6 (5-not met) Toileting(FIM): 6 (not met) Toileting Hygiene (QC): 6 (5-) Toilet/Commode Transfer(FIM): 6 (not met) Toilet/Commode Transfer (QC): 6 (5-not met) Shower Transfer(FIM): 6 (not met) Increase bilat UE strength to 5/5 as needed for functional mobility and ADLs Additional Goals: 2-Verbalize Understanding, 3-ImproveStrength/Anatoly 1=Demonstrate adherence to instructed precautions during ADL tasks. 2=Patient will verbalize/demonstrate understanding of assistive devices/ modifications for ADL. 3=Patient will improve strength/tolerance for activity to enable patient to perform ADL's. DESIRE SORIA PT Jan 03, 2017 10:54
--- NOTE | 2017-01-14 11:00 | DISCHARGE SUMMARY ---
DATE OF ADMISSION: 12/24/2016 DATE OF DISCHARGE: 01/03/2017 HISTORY OF PRESENT ILLNESS: The patient is a 51-year-old female who has been living with her in [place], [place] who had [place] Medicaid. She came to visit her son to live with them apparently in [place], [place] when she became ill. She developed gangrene in the left foot. She was admitted in [facility] on 12/08. 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 The patient was seen by ID and treated by hospitalist as well. The patient was placed on antibiotics. Her insulin was adjusted for better control of her diabetes mellitus. She has diabetic peripheral neuropathy but denies numbness in her right foot or pain or skin breakdown on the right leg. She was referred to Inpatient Rehabilitation Unit at [facility] for comprehensive program of inpatient amputee rehabilitation. She had been at independent but disabled prior to this. PAST MEDICAL HISTORY: 1. Hypertension. 2. COPD. 3. Type 2 diabetes mellitus. MEDICAL COURSE: The patient was followed by Dr. Flannery and Dr. Santiago while on rehab unit. Accu-Cheks were monitored, insulin adjusted accordingly. She completed a course of Zosyn for the infection. Blood glucometer readings from 01/02 to 01/03 varied between 84 and 199. Chemistry on 12/30 showed normal electrolytes, BUN and creatinine. Blood glucose 106. Albumin 2.9, total protein 7.4. CBC on 12/30/2016 showed WBC 7.1, hemoglobin and hematocrit 10.1/30, platelet count 594,000, which was decreasing. Hemoglobin and hematocrit was stable. She had a stool for C. diff. which was negative. She was afebrile during her stay. On 01/03, pulse was 93, respirations 18, blood pressure 112/66, O2 saturation 99% on room air. Her incision was healing well. She had decreased pain. She was seen by Dr. Bauer, precision agriculture specialist on 01/02. He noted that pressure sore in his sacral area was improving with barrier cream and pressure relief. It was recommended that she have follow-up with wound clinic in [place] or her PCP regarding follow-up for general medical care and pressure sore. bull gang worker indicated that [facility] in [place] will continue to follow her for her various medical concerns and wound care. She will have ongoing IV antibiotics through their infusion center and Accu-Cheks are as per home regimen. She will not have home health care. REHABILITATION COURSE: She progressed well with her therapy. She had increased strength and endurance. She was assessed by speech therapy upon admission to unit and found to be intact and they signed off. PT notes upon admission, the patient could perform bed mobility with standby assist and transfers with min assist, ambulate 5 feet with a wheeled walker with min assist and was able to propel with manual wheelchair 150 feet with standby assist. She has made good progress and has maintained full knee extension of the residual limb. Upon discharge, she is modified independent for bed mobility, standby assist for transfers, and can ambulate 50 feet with a wheeled walker with standby assist and could propel a manual wheelchair with modified independence. OT notes upon admission, she needed min assist to contact guard for bathing, lower body dressing, toileting, and toilet transfers. Set up for grooming, and upper body dressing and independent with eating. By discharge she was modified independent with eating, grooming, needed set up her standby assist for bathing, dressing and toileting. Equipment used included shower bench, grab bars, hand-held shower, tall toilet, front wheel walker and wheelchair. It was recommended that she have ongoing therapies through [facility][Note 3]. DISCHARGE INSTRUCTIONS: she will have follow-up with [facility] physicians. Follow-up for continued IV antibiotics through their infusion center. She was discharged home with family. Continue current diet and Accu-Cheks. DISCHARGE MEDICATIONS: 1. Hydrocodone APAP 10/325, 1 tablet p.o. q.4 hours p.r.n. moderate pain. 2. Levemir insulin 15 units subcutaneous at bedtime. 3. Flagyl 500 mg p.o. t.i.d. 4. Nystatin topically p.r.n. itch. 5. Zinc oxide topically b.i.d. 6. Amlodipine 5 mg p.o. daily. 7. Gabapentin 100 mg p.o. b.i.d. 8. Culturelle 1 capsule p.o. b.i.d. 9. Lisinopril 10 mg p.o. daily. 10. Metformin 1000 mg p.o. q.12 hours. 11. Zosyn 3.375 grams IV q.6 hours. DISCHARGE DIAGNOSES: 1. Rehabilitation ambulatory dysfunction secondary to osteomyelitis, left foot, status post left BKA. 2. Sepsis group B strep, treated. 3. Diabetes mellitus type 2. 4. Neuropathy. 5. Hypertension, controlled with medication. 6. COPD, stable. 7. Postoperative anemia, stable. 8. Pressure sore sacrum improving with pressure relief and topical care. 9. Long-term use insulin. 10. Diarrhea, resolved with negative stool for C. diff. 11. Hypoalbuminemia. CONDITION AT DISCHARGE: Improved and stable. PROGNOSIS: Rehab prognosis appears good for continued improvement at home and return to independent living with assistance from family as needed. Hopefully she will be a prosthetic candidate at a later time and hopefully she will be able to obtain her [place] Medicaid card so that she may have some form of medical insurance. Job ID: [id number] Dictated Date: 01/14/2017 08:58:23 Bone Density Technician Date: 01/14/2017 10:43:34/luis
== END 2017-01-03 08:00 | disposition home or self-care (01) | DRG 559 ==
PROVIDERS: ADMIT Physical Medicine & Rehabilitation; ATTEND Physical Medicine & Rehabilitation
DX: Z47.81 Encounter for orthopedic aftercare following surgical amputation (principal); Z89.512 Acquired absence of left leg below knee; A40.1 Sepsis due to streptococcus, group B; E11.40 Type 2 diabetes mellitus with diabetic neuropathy, unspecified; I10 Essential (primary) hypertension; J44.9 Chronic obstructive pulmonary disease, unspecified; D64.9 Anemia, unspecified; L89.150 Pressure ulcer of sacral region, unstageable; R19.7 Diarrhea, unspecified; Z79.4 Long term (current) use of insulin
CPT/HCPCS: 36415; 80048; 80053; 82962; 85007; 85025; 85027; 87324; 87449